=== PATIENT | female | born 1960 | race Caucasian/White ===

== ENCOUNTER 2016-04-02 19:17 | Emergency (ER) | payer SELFPAY ==
[~2016-04-02] VITALS: Ht 154.9 cm; Wt 57.0 kg
[~2016-04-02 19:17] MED LIST: ABCC1C PO; ACET1TAB40 PO; AUG875 PO; BUTA1CAP39 PO; FIORICET PO; HYDR-3498 PO; HYDR-3720 PO; IBUP800T25 PO; NAPR-260 PO; ONDA4TAB14 PO; ONDA4TAB8 PO; PROC10TA10 PO; SUMA50TA11 PO; ZOF8 PO
[2016-04-02 19:34] VITALS: Ht 154.9 cm; Wt 57.0 kg
[2016-04-03] MEDS ORDERED: ONDANSETRON (ODT) 4 MG TAB ODT STA (00:58)
[2016-04-03] MEDS ORDERED: KETOROLAC 30 MG INJ IM STA (00:58)
--- NOTE | 2016-04-03 01:12 | ERD ---
ER Documentation Chief Complaint Date/Time DATE: 04/03/16 TIME: 01:01 Chief Complaint migraine x 2 days lat medicated with excedrin 4 hrs ago HPI The patient is a 55-year-old female here with her usual migraine. It started yesterday and she took Excedrin Migraine without much relief. She denies sudden or thunderclap onset. She denies any change from her usual symptoms. She has photophobia, sensitivity to smells, nausea, and her usual level and location of headache pain. She denies any visual changes, blurred vision, double vision, head injury, recent illness, chest pain, difficulty breathing, or any other symptoms or concerns at this time. She states that she is currently waiting for her [employer] to sign her up with [place] so that she can follow up with a neurologist since she reports getting approximately 2-3 migraines per month. ROS All systems reviewed and are negative except as per history of present illness. Medications Home Meds Active Scripts Ondansetron Hcl* (Zofran*) 4 Mg Tablet, 4 MG PO Q6H for NAUSEA AND/OR VOMITING, #9 TAB Prov:BENNY MAHMOOD, SHUTTLE VAN DRIVER 04/03/16 Acetamin/Butalbital/Caffeine* (Fioricet*) [id number] Tab, 1 TAB PO Q6H Y for PAIN, #15 TAB Prov:BENNY MAHMOOD, JOSE ROBERTO 04/03/16 Acetamin/Butalbital/Caffeine* (Fioricet*) [id number] Tab, 1 TAB PO Q6H Y for PAIN, #30 TAB Prov:RUBIA POLANCO PA-C 03/13/16 Ondansetron (Ondansetron Odt) 4 Mg Tab.rapdis, 4 MG PO Q6H Y for NAUSEA AND/OR VOMITING, #10 TAB Prov:NOA GBISON DO 12/17/15 Naproxen* (Naprosyn*) 500 Mg Tablet, 500 MG PO BID Y for PAIN AND/OR INFLAMMATION, #10 TAB Prov:NOA GIBSON DO 12/17/15 Acetamin/Butalbital/Caffeine* (Fioricet*) 1 Tab Tab, 1 TAB PO Q4H Y for PAIN LEVEL 1-5, #15 TAB Prov:RUBIA POLANCO PA-C 11/27/15 Sumatriptan Succinate* (Imitrex*) 50 Mg Tablet, 50 MG PO BID Y for MIGRAINE HEADACHE, #30 TAB May repeat after 2 hours if needed; MAX 200 mg/24 hours Prov:RUBIA POLANCO PA-C 11/27/15 Hydrocodone Bit-Acetaminophen* ([place]*) 5-325 Mg Tab, 1 TAB PO Q6 Y for PAIN, # 16 TAB Prov:AMANDEEP RIVERA MD 10/19/15 Ondansetron Hcl* (Zofran* ODT) 8 mg -ODT Tab.disper, 8 MG PO Q6 Y for NAUSEA AND /OR VOMITING, #10 TAB Prov:AMANDEEP RIVERA MD 10/19/15 Hydrocodone Bit-Acetaminophen* ([place]*) 5-325 Mg Tab, 1 TAB PO Q6 Y for PAIN, # 16 TAB Prov:AMANDEEP RIVERA MD 05/30/15 Prochlorperazine* (Prochlorperazine*) 10 Mg Tablet, 10 MG PO Q6 Y for NAUSEA AND /OR VOMITING, #10 TAB Prov:ELSY ARREAGASTOLOS ANegro DO 04/24/15 Ibuprofen* (Motrin*) 800 Mg Tab, 800 MG PO Q6H Y for PAIN AND OR ELEVATED TEMP, #30 TAB Prov:LEYIFANOSAPOSTOLOS A. DO 04/24/15 Hydrocodone Bit-Acetaminophen* ([place]*) 7.5-325 Tablet, 2 TAB PO Q4H Y for PAIN , #30 TAB Prov:LEYIFANOSAPOSTOLOS A. DO 04/24/15 Acetamin/Butalbital/Caffeine* (Fioricet*) 1 Tab Tab, 1 TAB PO Q4H Y for PAIN LEVEL 1-5, #30 TAB Prov:RUBIA POLANCO PA-C 02/12/15 Ondansetron Hcl* (Zofran*) 4 Mg Tablet, 4 MG PO Q8, #20 TAB Prov:TREMAINE GARNICA 01/18/15 Snaqshavfzscf-Sawytenexx-Ennuaxxb-Codeine* (Fioricet w/ Codeine*) [id number]- 30MG Capsule, 1 CAP PO Q6H Y for PAIN LEVEL 1-5, #20 CAP Prov:TREMAINE GARNICA 01/18/15 Ondansetron Hcl* (Zofran* ODT) 8 mg -ODT Tab.disper, 8 MG PO Q6H Y for NAUSEA AND OR VOMITING, #20 TAB Prov:JANKI ANDRADE PA-C 12/26/14 Rqnmbwnlrsqhx-Esmrbirsvj-Sssjsxnn-Codeine* (Fioricet w/Codeine*) [id number] -30MG Cap, 1 CAP PO Q4H Y for PAIN LEVEL 1-5, #20 CAP Prov:JANKI ANDRADE PA-C 12/26/14 Amoxicillin-Clavulanate K* (Augmentin*) 875 Mg Tab, 875 MG PO BID for 7 Days, TAB Prov:REVA MA M. 11/01/14 Acetaminophen-Codeine* (Acetaminophen-Cod #3*) 300-30 Mg Tab, 1 TAB PO Q6 Y for PAIN, #10 TAB Prov:REVA MA M. 11/01/14 Awlfmvqwspcmh-Lsnkjxptqj-Qhnbfzgm-Codeine* (Fioricet w/ Codeine*) [id number]- 30MG Capsule, 1 CAP PO Q6H Y for PAIN LEVEL 1-5, #8 CAP Prov:JANKI ANDRADE PA-C 09/22/14 Ondansetron Hcl* (Zofran* ODT) 8 mg -ODT Tab.disper, 8 MG PO Q6 Y for NAUSEA AND /OR VOMITING, #20 TAB Prov:JANKI ANDRADE PA-C 09/22/14 Allergies Allergies: Coded Allergies: No Known Allergy (Unverified , 01/18/15) PMhx/Soc History of Surgery: No Anesthesia Reaction: No Hx Neurological Disorder: No Hx Respiratory Disorders: No Hx Cardiac Disorders: No Hx Psychiatric Problems: No Hx Miscellaneous Medical Probl: Yes (Severe Migraine) Hx Alcohol Use: No Hx Substance Use: No Hx Tobacco Use: No Smoking Status: Never smoker Physical Exam Vitals Vital Signs Date Time Temp Pulse Resp B/P Pulse Ox O2 Delivery O2 Flow Rate FiO2 04/02/16 19:34 98.1 68 17 128/58 98 Physical Exam INITIAL VITAL SIGNS: Reviewed by me GENERAL: Alert. Well developed and well nourished. No respiratory distress HEAD: Head is normocephalic. Atraumatic. EYES: EOMI. PERRL. No scleral icterus. No conjunctival injection. ENT: External ears, nose, and mouth normal. Nasal passages patent. Moist mucous membranes. NECK: Supple. Full range of motion. Trachea midline. RESPIRATORY: No tachypnea. Clear to auscultation bilaterally. No wheezing, rales , or rhonchi. CV: Regular rate and rhythm. No murmurs, rubs, or gallops ABDOMEN: Soft, non-distended, non-tender. No guarding. No rebound. No masses. Bowel sounds normal in all quadrants. BACK: No CVA tenderness. Full ROM. EXTREMITIES: No obvious deformity. No clubbing or cyanosis. No edema. SKIN: Warm and dry. No diaphoresis. No obvious rashes or lesions. NEUROLOGIC: Alert and oriented x 4. Appropriate. Face is symmetric. Speech is normal. Moves all extremities equally. No focal neurologic deficits. Negative Romberg. Cranial nerve II-XII grossly intact on exam. Results 24 hrs Current Medications Medications (Trade) Dose Ordered Sig/[place] Route PRN Reason Start Time Stop Time Status Last Admin Dose Admin Ondansetron HCl (Zofran Odt) 4 mg ONCE STAT ODT 04/03/16 00:58 04/03/16 01:01 DC 04/03/16 01:05 Ketorolac Tromethamine (Toradol) 30 mg ONCE STAT IM 04/03/16 00:58 04/03/16 01:01 DC 04/03/16 01:06 Procedures/MDM Nursing Notes Reviewed Previous Medical Records requested via [employer]. EMERGENCY DEPARTMENT COURSE / MEDICAL DECISION MAKING: The patient comes to the ED secondary to migraine headache 2 days with associated photophobia, sensitivity to smells, and nausea. Differential diagnosis upon initial evaluation includes but is not limited to: Brain bleed, brain lesion, meningitis, migraine, and others. The patient was treated with Toradol 30 mg IM, Zofran 4 mg p.o. The patient was offered 1 L normal saline, IV Benadryl, IV Reglan, and IV Toradol, however she declined stating that her family is here waiting for her and she does not want them to have to wait much longer. I also offered her a head CT, but she stated that this migraine is no different from her usual migraines and she declined the head CT. She denied head trauma or thunderclap onset. Her physical exam was benign, and her vital signs were normal (98.1, HR 68, 128/58, RR 17, and 98% on room air). On reassessment, she denied any headache pain or nausea. Her repeat physical exam was benign. Given this, I have low suspicion at this time for brain bleed, brain lesion, meningitis, or any other serious cause of headache. Final impression: Migraine Based on patient's history of present illness and physical examination the decision was made to discharge. The patient was re-evaluated after ED treatment and stabilizing measures, and symptoms have resolved. There is no evidence of life threatening injuries or illnesses at this time. On re-examination, patient resting in no distress, stable vital signs, reports feeling better and safe for discharge with outpatient follow up with PMD in 1-2 days. Patient given return precautions. The patient verbalized understanding and agreed to return precautions. I counseled her at length regarding the importance of follow-up with a neurologist since she has several migraines per month. She verbalized understanding and agreed to follow up with a neurologist. She requested a prescription for fioricet, as she stated that it works well for her. On chart review, she was given fioricet last month (#30). Patient counseled on the risks of taking this medication penitentiary including addiction, medication abuse, liver damage, kidney damage, etc. I again reiterated that close follow up with a neurologist for migraine prophylaxis is imperative. She verbalized understanding and agreed. I will give fioricet on a short-term basis (#15). Prescription Zofran Fioricet Departure Diagnosis: Primary Impression: Migraine headache Migraine type: without aura Status migrainosus presence: without status migrainosus Intractability: not intractable Qualified Code: G43.009 - Migraine without aura and without status migrainosus, not intractable Condition: BENNY Bhatti NP Apr 03, 2016 01:12
[2016-04-03] MEDS ORDERED: FIORICET PO (01:14)
[2016-04-03] MEDS ORDERED: ONDA4TAB8 PO (01:14)
== END 2016-04-03 01:20 | disposition home or self-care (01) ==
LOC: FTE 19:17
DX: G43.009 Migraine without aura, not intractable, without status migrainosus (principal); R11.0 Nausea
CPT/HCPCS: 96372; 99284; J1885

== ENCOUNTER 2016-06-06 19:22 | Emergency (ER) | payer SELFPAY ==
[~2016-06-06] VITALS: Ht 154.9 cm; Wt 55.9 kg
[2016-06-06 20:44] VITALS: Ht 154.9 cm; Wt 55.9 kg
[2016-06-06] MEDS ORDERED: FIORICET PO ×2 (22:41→22:45)
--- NOTE | 2016-06-07 06:11 | ERD ---
ER Documentation Chief Complaint Date/Time DATE: 06/07/16 TIME: 05:59 Chief Complaint MIGRAINE SINCE THIS AM. OTC MEDS INEFFECTIVE. +N/V HPI Patient is a 55 yr old female complaining of a headache since this morning on the left frontal area. Patient has a history of migraine and has experienced the same symptoms before. Pt states that she ran out of antimigraine medications and has since been taking OTC meds without any benefit. Pt took advil 2 hours prior to examination. Pt also complains of nausea. Denies shortness of breath, paresthesia, paresis, drooling, slurred speech, nuchal rigidity, fever or dizziness. ROS All systems reviewed and are negative except as per history of present illness. Medications Home Meds Active Scripts Acetamin/Butalbital/Caffeine* (Fioricet*) [id number] Tab, 1 TAB PO Q6H Y for PAIN, #15 TAB Prov:BROOKE REED 06/06/16 Ondansetron Hcl* (Zofran*) 4 Mg Tablet, 4 MG PO Q6H for NAUSEA AND/OR VOMITING, #9 TAB Prov:BENNY MAHMOOD, TETRYL BLENDER OPERATOR 04/03/16 Acetamin/Butalbital/Caffeine* (Fioricet*) [id number] Tab, 1 TAB PO Q6H Y for PAIN, #15 TAB Prov:BENNY MAHMOOD, TETRYL BLENDER OPERATOR 04/03/16 Acetamin/Butalbital/Caffeine* (Fioricet*) [id number] Tab, 1 TAB PO Q6H Y for PAIN, #30 TAB Prov:RUBIA POLANCO PA-C 03/13/16 Ondansetron (Ondansetron Odt) 4 Mg Tab.rapdis, 4 MG PO Q6H Y for NAUSEA AND/OR VOMITING, #10 TAB Prov:NOA GIBSON DO 12/17/15 Naproxen* (Naprosyn*) 500 Mg Tablet, 500 MG PO BID Y for PAIN AND/OR INFLAMMATION, #10 TAB Prov:NOA GIBSON DO 12/17/15 Acetamin/Butalbital/Caffeine* (Fioricet*) 1 Tab Tab, 1 TAB PO Q4H Y for PAIN LEVEL 1-5, #15 TAB Prov:RUBIA POLANCO PA-C 11/27/15 Sumatriptan Succinate* (Imitrex*) 50 Mg Tablet, 50 MG PO BID Y for MIGRAINE HEADACHE, #30 TAB May repeat after 2 hours if needed; MAX 200 mg/24 hours Prov:RUBIA POLANCO PA-C 11/27/15 Hydrocodone Bit-Acetaminophen* ([place]*) 5-325 Mg Tab, 1 TAB PO Q6 Y for PAIN, # 16 TAB Prov:AMANDEEP RIVERA MD 10/19/15 Ondansetron Hcl* (Zofran* ODT) 8 mg -ODT Tab.disper, 8 MG PO Q6 Y for NAUSEA AND /OR VOMITING, #10 TAB Prov:AMANDEEP RIVERA MD 10/19/15 Hydrocodone Bit-Acetaminophen* ([place]*) 5-325 Mg Tab, 1 TAB PO Q6 Y for PAIN, # 16 TAB Prov:AMANDEEP RIVERA MD 05/30/15 Prochlorperazine* (Prochlorperazine*) 10 Mg Tablet, 10 MG PO Q6 Y for NAUSEA AND /OR VOMITING, #10 TAB Prov:ELSY ARREAGASTOLOS ANegro DO 04/24/15 Ibuprofen* (Motrin*) 800 Mg Tab, 800 MG PO Q6H Y for PAIN AND OR ELEVATED TEMP, #30 TAB Prov:LEKKOSAPOSTOLOS A. DO 04/24/15 Hydrocodone Bit-Acetaminophen* ([place]*) 7.5-325 Tablet, 2 TAB PO Q4H Y for PAIN , #30 TAB Prov:LEKKOSAPOSTOLOS A. DO 04/24/15 Acetamin/Butalbital/Caffeine* (Fioricet*) 1 Tab Tab, 1 TAB PO Q4H Y for PAIN LEVEL 1-5, #30 TAB Prov:RUBIA POLANCO PA-C 02/12/15 Ondansetron Hcl* (Zofran*) 4 Mg Tablet, 4 MG PO Q8, #20 TAB Prov:TREMAINE GARNICA 01/18/15 Uhnerqktdkzmn-Zcvhijaxvm-Aqvbrglp-Codeine* (Fioricet w/ Codeine*) [id number]- 30MG Capsule, 1 CAP PO Q6H Y for PAIN LEVEL 1-5, #20 CAP Prov:TREMAINE GARNICA 01/18/15 Ondansetron Hcl* (Zofran* ODT) 8 mg -ODT Tab.disper, 8 MG PO Q6H Y for NAUSEA AND OR VOMITING, #20 TAB Prov:JANKI ANDRADE PA-C 12/26/14 Ykluzhydxoxsp-Isaaqmydvv-Uerwfzeu-Codeine* (Fioricet w/Codeine*) [id number] -30MG Cap, 1 CAP PO Q4H Y for PAIN LEVEL 1-5, #20 CAP Prov:JANKI ANDRADE PA-C 12/26/14 Amoxicillin-Clavulanate K* (Augmentin*) 875 Mg Tab, 875 MG PO BID for 7 Days, TAB Prov:REVA MA M. 11/01/14 Acetaminophen-Codeine* (Acetaminophen-Cod #3*) 300-30 Mg Tab, 1 TAB PO Q6 Y for PAIN, #10 TAB Prov:REVA MA M. 11/01/14 Wtybamqfinfrq-Ffwnifkrbb-Mycfstkv-Codeine* (Fioricet w/ Codeine*) [id number]- 30MG Capsule, 1 CAP PO Q6H Y for PAIN LEVEL 1-5, #8 CAP Prov:JANKI ANDRADE PA-C 09/22/14 Ondansetron Hcl* (Zofran* ODT) 8 mg -ODT Tab.disper, 8 MG PO Q6 Y for NAUSEA AND /OR VOMITING, #20 TAB Prov:JANKI ANDRADE PA-C 09/22/14 Allergies Allergies: Coded Allergies: No Known Allergy (Unverified , 01/18/15) PMhx/Soc Medical and Surgical Hx: pt denies Surgical Hx History of Surgery: No Anesthesia Reaction: No Hx Neurological Disorder: No Hx Respiratory Disorders: No Hx Cardiac Disorders: No Hx Psychiatric Problems: No Hx Miscellaneous Medical Probl: Yes (Severe Migraine) Hx Alcohol Use: No Hx Substance Use: No Hx Tobacco Use: No Smoking Status: Never smoker Physical Exam Vitals Vital Signs Date Time Temp Pulse Resp B/P Pulse Ox O2 Delivery O2 Flow Rate FiO2 06/06/16 20:44 97.8 87 18 125/58 99 Physical Exam Physical Exam CONST: Well-developed, well-nourished, in no acute distress. Nontoxic in appearance. HEENT: Atraumatic. Normal conjunctiva. EOM intact. TM intact. External ear is normal. Clear oropharnyx without erythema. No uvular deviation. Moist mucous membranes. Supple neck. No meningismus. No submandibular induration. RESP: Clear to auscultation bilaterally. No wheezing. CARDIO: Regular rate and rhythm, no murmurs. ABD: Soft, non tender, non distended. Normal bowel sounds. No McBurney's point tenderness. No guarding or rigidity. No peritoneal signs. SKIN: No petechiae or rashes. BACK: No midline or flank tenderness. EXT: No cyanosis or edema. Distal pulses equal and bilateral. NEURO: Awake and alert, appropriate for age. Procedures/MDM EMERGENCY DEPARTMENT COURSE/MEDICAL DECISION MAKING This is a 55 who comes to the emergency room secondary to complaints of migraine headache. Pt admits of running out of antiemetic medications and has been taking OTC pain meds without benefit. pt is on [employer] database and last narcotic prescription was for tramadol #15 tablets on 04/27/16. pulmonary and cardiac examination is unremarkable and I believe a radiographic study is not warranted. My primary diagnosis is migraine headache. Differential diagnoses considered but not limited to migraine, temporal arteritis, intracerebral hemorrhage, meningitis, head injury or brain neoplasm. . Pt is hemodynamically stable upon reassessment. The patient was discharged for outpatient management with a prescription for [] . The patient was advised to followup with their PMD in 1-2 days and to return to the Emergency Department if there are any new or worsening symptoms. The patient understood and agreed with the diagnosis, treatment and plan. Patient is stable for discharge at this time. Departure Diagnosis: Primary Impression: Migraine headache Migraine type: without aura Status migrainosus presence: without status migrainosus Intractability: intractable Qualified Code: G43.019 - Intractable migraine without aura and without status migrainosus Condition: Stable Patient Instructions: Headache, Migraine (Classical) [facility] Usted se cox hecho un examen mdico de control que le indica que no est en nickie condicin que requiera tratamiento urgente en el Departamento de Emergencia. Un estudio ms profundo y el tratamiento de kamara condicin pueden esperar sin ningn riesgo hasta que usted sea atendida/o en el consultorio de kamara mdico o nickie cl flaco. Es responsabilidad suya arreglar nickie tamara para el seguimiento del maldonado. MANEJO DE CONDICIONES NO URGENTES EN EL FUTURO 1) Si usted tiene un mdico de atencin primaria: Usted debera llamar a kamara mdico de atencin primaria antes de venir al departamento de emergencia. Despus de las horas de consultorio, kamara doctor o kamara asociado/a est disponible por telfono. El mdico o enfermero de balwinder en el servicio telefnico puede asesorarle por tres medio para atender el problema, o maldonado contrario se puede programar nickie tamara. 2) Si usted no tiene un mdico de atencin primaria: Llame al mdico o clnica de referencia que aparece abajo nidia las horas de consultorio para hacer nickie tamara para que le vean. CLINICAS: [facility] [phone] [facility] [phone] [address] [facility] [phone] [facility] [phone] [facility]. [place] [id number] [phone] [facility]. [phone] [facility] () Usted se cox hecho un examen mdico de control que le indica que no est en nickie condicin que requiera tratamiento urgente en el Departamento de Emergencia. Un estudio ms profundo y el tratamiento de kamara condicin pueden esperar sin ningn riesgo hasta que usted sea atendida/o en el consultorio de kamara mdico o nickie cl flaco. Es responsabilidad suya arreglar nicike tamara para el seguimiento del maldonado. MANEJO DE CONDICIONES NO URGENTES EN EL FUTURO 1) Si usted tiene un mdico de atencin primaria: Usted debera llamar a kamara mdico de atencin primaria antes de venir al departamento de emergencia. Despus de las horas de consultorio, kamara doctor o kamara asociado/a est disponible por telfono. El mdico o enfermero de balwinder en el servicio telefnico puede asesorarle por tres medio para atender el problema, o maldonado contrario se puede programar nickie tamara. 2) Si usted no tiene un mdico de atencin primaria: Llame al mdico o condado institucions de referencia que aparece abajo nidia las horas de consultorio para hacer nickie tamara para que le vean. SI USTED NO PUEDE PAGAR PARA PRIYANKA UN MEDICO puede ir a: [facility] [address] [place] [address] [facility] [address] [place] [address] [facility] [address] [place] [address] [address] [facility] [address] [place] [address] Additional Instructions: Cheque otro vez con kamara doctor primario en el proximo tavares or regresa para mas o nueva simptomas BROOKE REED Jun 07, 2016 06:10
== END 2016-06-06 23:01 | disposition home or self-care (01) ==
LOC: FTE 19:22
DX: G43.019 Migraine without aura, intractable, without status migrainosus (principal)
CPT/HCPCS: 99283

== ENCOUNTER 2016-09-02 10:27 | Emergency (ER) | payer MEDICAID ==
[~2016-09-02] VITALS: Ht 154.9 cm; Wt 57.0 kg
[2016-09-02 10:29] VITALS: Ht 154.9 cm; Wt 57.0 kg
[2016-09-02] MEDS ORDERED: ONDANSETRON (ODT) 4 MG TAB ODT STA (10:42)
[2016-09-02] MEDS ORDERED: KETOROLAC 30 MG INJ IM STA (10:42)
[2016-09-02] MEDS ORDERED: ONDA4TAB14 PO (10:43)
[2016-09-02] MEDS ORDERED: FIORICET PO (10:43)
--- NOTE | 2016-09-02 11:04 | ERD ---
ER Documentation Chief Complaint Date/Time DATE: 09/02/16 TIME: 11:02 Chief Complaint Complains of a headache since this am HPI 55-year-old female history of migraine headache comes emergency room with recurring headache that started this morning. She states it is diffuse, pressure-like, throbbing. She states the last time she had this headache was up to 6 months ago. She frequents emergency department usually takes either tramadol or Fioricet. She denies any fevers or chills, neck stiffness, vomiting or diarrhea. No headache. Patient's denies that this is the worst headache of her life. ROS All systems reviewed and are negative except as per history of present illness. Medications Home Meds Active Scripts Ondansetron (Ondansetron Odt) 4 Mg Tab.rapdis, 4 MG PO Q6H Y for NAUSEA AND/OR VOMITING, #20 TAB Prov:JANKI ANDRADE PA-C 09/02/16 Acetamin/Butalbital/Caffeine* (Fioricet*) [id number] Tab, 1 TAB PO Q6H Y for PAIN, #30 TAB Prov:JANKI ANDRADE PA-C 09/02/16 Acetamin/Butalbital/Caffeine* (Fioricet*) [id number] Tab, 1 TAB PO Q6H Y for PAIN, #15 TAB Prov:BROOKE REED 06/06/16 Ondansetron Hcl* (Zofran*) 4 Mg Tablet, 4 MG PO Q6H for NAUSEA AND/OR VOMITING, #9 TAB Prov:BENNY MAHMOOD, JOSE ROBERTO 04/03/16 Acetamin/Butalbital/Caffeine* (Fioricet*) [id number] Tab, 1 TAB PO Q6H Y for PAIN, #15 TAB Prov:BENNY MAHMOOD, TANNING DRUM OPERATOR 04/03/16 Acetamin/Butalbital/Caffeine* (Fioricet*) [id number] Tab, 1 TAB PO Q6H Y for PAIN, #30 TAB Prov:RUBIA POLANCO PA-C 03/13/16 Ondansetron (Ondansetron Odt) 4 Mg Tab.rapdis, 4 MG PO Q6H Y for NAUSEA AND/OR VOMITING, #10 TAB Prov:NOA GIBSON DO 12/17/15 Naproxen* (Naprosyn*) 500 Mg Tablet, 500 MG PO BID Y for PAIN AND/OR INFLAMMATION, #10 TAB Prov:NOA GIBSON DO 12/17/15 Acetamin/Butalbital/Caffeine* (Fioricet*) 1 Tab Tab, 1 TAB PO Q4H Y for PAIN LEVEL 1-5, #15 TAB Prov:RUBIA POLANCO PA-C 11/27/15 Sumatriptan Succinate* (Imitrex*) 50 Mg Tablet, 50 MG PO BID Y for MIGRAINE HEADACHE, #30 TAB May repeat after 2 hours if needed; MAX 200 mg/24 hours Prov:RUBIA POLANCO PA-C 11/27/15 Hydrocodone Bit-Acetaminophen* (Fulton*) 5-325 Mg Tab, 1 TAB PO Q6 Y for PAIN, # 16 TAB Prov:AMANDEEP RIVERA MD 10/19/15 Ondansetron Hcl* (Zofran* ODT) 8 mg -ODT Tab.disper, 8 MG PO Q6 Y for NAUSEA AND /OR VOMITING, #10 TAB Prov:AMANDEEP RIVERA MD 10/19/15 Hydrocodone Bit-Acetaminophen* (Fulton*) 5-325 Mg Tab, 1 TAB PO Q6 Y for PAIN, # 16 TAB Prov:AMANDEEP RIVERA MD 05/30/15 Prochlorperazine* (Prochlorperazine*) 10 Mg Tablet, 10 MG PO Q6 Y for NAUSEA AND /OR VOMITING, #10 TAB Prov:KALANI ARREAGA DO 04/24/15 Ibuprofen* (Motrin*) 800 Mg Tab, 800 MG PO Q6H Y for PAIN AND OR ELEVATED TEMP, #30 TAB Prov:ELSY ARREAGASTOLOS ANegro DO 04/24/15 Hydrocodone Bit-Acetaminophen* (Fulton*) 7.5-325 Tablet, 2 TAB PO Q4H Y for PAIN , #30 TAB Prov:ELSY ARREAGASTOLOS ANegro DO 04/24/15 Acetamin/Butalbital/Caffeine* (Fioricet*) 1 Tab Tab, 1 TAB PO Q4H Y for PAIN LEVEL 1-5, #30 TAB Prov:RUBIA POLANCO PA-C 02/12/15 Ondansetron Hcl* (Zofran*) 4 Mg Tablet, 4 MG PO Q8, #20 TAB Prov:TREMAINE GARNICA 01/18/15 Pdsdpfxxjdptn-Kgvacuzwip-Vntqceio-Codeine* (Fioricet w/ Codeine*) [id number] 30MG Capsule, 1 CAP PO Q6H Y for PAIN LEVEL 1-5, #20 CAP Prov:TREMAINE GARNICA 01/18/15 Ondansetron Hcl* (Zofran* ODT) 8 mg -ODT Tab.disper, 8 MG PO Q6H Y for NAUSEA AND OR VOMITING, #20 TAB Prov:JANKI ANDRADE PA-C 12/26/14 Titdkffmrokxg-Zzeabxqrqe-Yvnbpxnc-Codeine* (Fioricet w/Codeine*) [id number] -30MG Cap, 1 CAP PO Q4H Y for PAIN LEVEL 1-5, #20 CAP Prov:JANKI ANDRADE PA-C 12/26/14 Amoxicillin-Clavulanate K* (Augmentin*) 875 Mg Tab, 875 MG PO BID for 7 Days, TAB Prov:REVA MA. 11/01/14 Acetaminophen-Codeine* (Acetaminophen-Cod #3*) 300-30 Mg Tab, 1 TAB PO Q6 Y for PAIN, #10 TAB Prov:REVA MA. 11/01/14 Gjmystttcwfmw-Klgsnrwali-Sntephal-Codeine* (Fioricet w/ Codeine*) [id number]- 30MG Capsule, 1 CAP PO Q6H Y for PAIN LEVEL 1-5, #8 CAP Prov:JANKI ANDRADE PA-C 09/22/14 Ondansetron Hcl* (Zofran* ODT) 8 mg -ODT Tab.disper, 8 MG PO Q6 Y for NAUSEA AND /OR VOMITING, #20 TAB Prov:JANKI ANDRADE PA-C 09/22/14 Allergies Allergies: Coded Allergies: No Known Allergy (Unverified , 01/18/15) PMhx/Soc History of Surgery: No Anesthesia Reaction: No Hx Neurological Disorder: No Hx Respiratory Disorders: No Hx Cardiac Disorders: No Hx Psychiatric Problems: No Hx Miscellaneous Medical Probl: Yes (Severe Migraine) Hx Alcohol Use: No Hx Substance Use: No Hx Tobacco Use: No Physical Exam Vitals Vital Signs Date Time Temp Pulse Resp B/P Pulse Ox O2 Delivery O2 Flow Rate FiO2 09/02/16 10:29 98.0 92 20 139/67 98 Physical Exam General: Well-developed, well-nourished. The patient appears in no acute distress. HEENT: Head is normocephalic, atraumatic. No scleral icterus. No tenderness to bilateral temples. Neck: Supple. Nontender. Lungs: Clear to auscultation. Normal air movement. Heart: Regular rate and rhythm. S1 and S2 are normal. No murmurs, gallops, or rubs. Abdomen: Nondistended. Extremities: No clubbing or cyanosis. Moving extremities x 4. No weakness. Neurologic: Alert and oriented 3. No focal deficits. Normal speech and gait. Cranial nerves II through XII grossly intact. Strength to upper and lower extremity 5 out of 5 bilaterally. Skin: Normal turgor. No rash or lesions. Results 24 hrs Current Medications Medications (Trade) Dose Ordered Sig/Chelsea Route PRN Reason Start Time Stop Time Status Last Admin Dose Admin Ondansetron HCl (Zofran Odt) 4 mg ONCE STAT ODT 09/02/16 10:42 09/02/16 10:43 DC 09/02/16 10:46 Ketorolac Tromethamine (Toradol) 30 mg ONCE STAT IM 09/02/16 10:42 09/02/16 10:43 DC 09/02/16 10:46 Procedures/MDM ED course: Patient was given Toradol 30 mg IM, Zofran 4 mg ODT was administered. MDM: 60-year-old female comes in with recurring headache, likely migraine headache. Other differentials and considered include subarachnoid hemorrhage, temporal arteritis, intracranial hemorrhage, mass-effect, TIA, stroke, meningitis, encephalitis, however unlikely. She states that she has had this headache multiple times in the past, and responded to Toradol and Zofran well. She will be given a short course of Fioricet, Zofran. I have advised her to follow-up with her primary care doctor, and she likely needs outpatient management with neurology. Patient's blood pressure was elevated (>120/80) but appears stable without evidence of hypertension emergency or urgency. The patient was counseled about the risks of hypertension and urged to pursue outpatient monitoring and therapy within a week with their primary care physician. Departure Diagnosis: Primary Impression: Headache Condition: Good Patient Instructions: Self-Care for Headaches Referrals: NARCISO CAO MD Additional Instructions: SPECIALIST: YOU HAVE A MEDICAL CONDITION WHICH REQUIRES YOU TO SEE A SPECIALIST WITHIN THE NEXT 1-2 DAYS. PLEASE FOLLOW UP WITH YOUR PRIMARY PHYSICIAN FOR REFFERAL.IF YOU DO NOT HAVE A PRIMARY CARE PHYSICIAN AND/OR YOU CAN NOT AFFORD TO SEE A PHYSICIAN THE FOLLOWING RESOURCES HAVE BEEN SUPPLIED TO YOU. IT IS YOUR RESPONSIBILITY TO BE SEEN BY THE SPECIALIST JANKI ANDRADE PA-C Sep 02, 2016 11:04
[2016-09-02 11:11] VITALS: BP 128/65; PULSE 75; RESP 19; TEMP 98.4
== END 2016-09-02 11:18 | disposition home or self-care (01) ==
LOC: FTE 10:27
DX: R51 Headache (principal)
CPT/HCPCS: 96372; J1885; Z7502; Z7610

== ENCOUNTER 2016-12-09 14:53 | Emergency (ER) | payer SELFPAY ==
[~2016-12-09] VITALS: Ht 160 cm; Wt 59.5 kg
[2016-12-09 14:57] VITALS: Ht 160 cm; Wt 59.5 kg
[2016-12-09] MEDS ORDERED: ONDANSETRON (ODT) 4 MG TAB ODT STA (15:30)
[2016-12-09] MEDS ORDERED: FIORICET PO (15:44)
--- NOTE | 2016-12-09 17:26 | ERD ---
ER Documentation Chief Complaint Date/Time DATE: 12/09/16 TIME: 17:20 Chief Complaint headache since this morning hx migraines HPI 55-year-old female patient with a past medical history of migraines presents to the ED stating that her episode of headache started this morning associated with 2 episodes of nonbilious nonbloody vomiting. States that she is here for a refill for Fioricet. States that her headache is mainly in the temporal region and on the top of her head. Describes the pain as sharp and rates it a 10 out of 10. This feels exactly like her history of migraines. Denies any head or neck injuries. Denies any loss of consciousness or seizures. Denies any weakness, numbness or tingling, dizziness, blurred vision, vision loss, pain , shortness of breath, neck pain. Denies any photophobia or phonophobia. ROS All systems reviewed and are negative except as per history of present illness. Medications Home Meds Active Scripts Acetamin/Butalbital/Caffeine* (Fioricet*) [id number] Tab, 1 TAB PO Q6H Y for PAIN, #30 TAB Prov:KATLIN GARCIA PA-C 12/09/16 Ondansetron (Ondansetron Odt) 4 Mg Tab.rapdis, 4 MG PO Q6H Y for NAUSEA AND/OR VOMITING, #20 TAB Prov:JANKI ANDRADE PA-C 09/02/16 Acetamin/Butalbital/Caffeine* (Fioricet*) [id number] Tab, 1 TAB PO Q6H Y for PAIN, #30 TAB Prov:JANKI ANDRADE PA-C 09/02/16 Acetamin/Butalbital/Caffeine* (Fioricet*) [id number] Tab, 1 TAB PO Q6H Y for PAIN, #15 TAB Prov:BROOKE REED 06/06/16 Ondansetron Hcl* (Zofran*) 4 Mg Tablet, 4 MG PO Q6H for NAUSEA AND/OR VOMITING, #9 TAB Prov:BENNY MAHMOOD, JOSE ROBERTO 04/03/16 Acetamin/Butalbital/Caffeine* (Fioricet*) [id number] Tab, 1 TAB PO Q6H Y for PAIN, #15 TAB Prov:BENNY MAHMOOD, CONSTRUCTION JOB COST ESTIMATOR 04/03/16 Acetamin/Butalbital/Caffeine* (Fioricet*) [id number] Tab, 1 TAB PO Q6H Y for PAIN, #30 TAB Prov:RUBIA POLANCO PA-C 03/13/16 Ondansetron (Ondansetron Odt) 4 Mg Tab.rapdis, 4 MG PO Q6H Y for NAUSEA AND/OR VOMITING, #10 TAB Prov:NOA GIBSON DO 12/17/15 Naproxen* (Naprosyn*) 500 Mg Tablet, 500 MG PO BID Y for PAIN AND/OR INFLAMMATION, #10 TAB Prov:NOA GIBSON DO 12/17/15 Acetamin/Butalbital/Caffeine* (Fioricet*) 1 Tab Tab, 1 TAB PO Q4H Y for PAIN LEVEL 1-5, #15 TAB Prov:RUBIA POLANCO PA-C 11/27/15 Sumatriptan Succinate* (Imitrex*) 50 Mg Tablet, 50 MG PO BID Y for MIGRAINE HEADACHE, #30 TAB May repeat after 2 hours if needed; MAX 200 mg/24 hours Prov:RUBIA POLANCO PA-C 11/27/15 Hydrocodone Bit-Acetaminophen* (Varnell*) 5-325 Mg Tab, 1 TAB PO Q6 Y for PAIN, # 16 TAB Prov:AMANDEEP RIVERA MD 10/19/15 Ondansetron Hcl* (Zofran* ODT) 8 mg -ODT Tab.disper, 8 MG PO Q6 Y for NAUSEA AND /OR VOMITING, #10 TAB Prov:AMANDEEP RIVERA MD 10/19/15 Hydrocodone Bit-Acetaminophen* (Varnell*) 5-325 Mg Tab, 1 TAB PO Q6 Y for PAIN, # 16 TAB Prov:AMANDEEP RIVERA MD 05/30/15 Prochlorperazine* (Prochlorperazine*) 10 Mg Tablet, 10 MG PO Q6 Y for NAUSEA AND /OR VOMITING, #10 TAB Prov:KALANI ARREAGA DO 04/24/15 Ibuprofen* (Motrin*) 800 Mg Tab, 800 MG PO Q6H Y for PAIN AND OR ELEVATED TEMP, #30 TAB Prov:KALANI ARREAGA A. DO 04/24/15 Hydrocodone Bit-Acetaminophen* (Varnell*) 7.5-325 Tablet, 2 TAB PO Q4H Y for PAIN , #30 TAB Prov:ALEXIS ARREAGAS A. DO 04/24/15 Acetamin/Butalbital/Caffeine* (Fioricet*) 1 Tab Tab, 1 TAB PO Q4H Y for PAIN LEVEL 1-5, #30 TAB Prov:RUBIA POLANCO PA-C 02/12/15 Ondansetron Hcl* (Zofran*) 4 Mg Tablet, 4 MG PO Q8, #20 TAB Prov:TREMAINE GARNICA 01/18/15 Vkfwukrquvkga-Doesekavpo-Ejxgnmsw-Codeine* (Fioricet w/ Codeine*) [id number]- 30MG Capsule, 1 CAP PO Q6H Y for PAIN LEVEL 1-5, #20 CAP Prov:TREMAINE GARNICA 01/18/15 Ondansetron Hcl* (Zofran* ODT) 8 mg -ODT Tab.disper, 8 MG PO Q6H Y for NAUSEA AND OR VOMITING, #20 TAB Prov:JANKI ANDRADE PA-C 12/26/14 Pbevtfntyaoab-Ziulcpjapi-Vsjzbfer-Codeine* (Fioricet w/Codeine*) [id number] -30MG Cap, 1 CAP PO Q4H Y for PAIN LEVEL 1-5, #20 CAP Prov:JANKI ANDRADE PA-C 12/26/14 Amoxicillin-Clavulanate K* (Augmentin*) 875 Mg Tab, 875 MG PO BID for 7 Days, TAB Prov:REVA MA M. 11/01/14 Acetaminophen-Codeine* (Acetaminophen-Cod #3*) 300-30 Mg Tab, 1 TAB PO Q6 Y for PAIN, #10 TAB Prov:REVA MA M. 11/01/14 Fhkbualmksxcr-Udrvxaleei-Bfhqeppq-Codeine* (Fioricet w/ Codeine*) [id number]- 30MG Capsule, 1 CAP PO Q6H Y for PAIN LEVEL 1-5, #8 CAP Prov:JANKI ANDRADE PA-C 09/22/14 Ondansetron Hcl* (Zofran* ODT) 8 mg -ODT Tab.disper, 8 MG PO Q6 Y for NAUSEA AND /OR VOMITING, #20 TAB Prov:JANKI ANDRADE PA-C 09/22/14 Allergies Allergies: Coded Allergies: No Known Allergy (Unverified , 12/09/16) PMhx/Soc History of Surgery: No Anesthesia Reaction: No Hx Neurological Disorder: No Hx Respiratory Disorders: No Hx Cardiac Disorders: No Hx Psychiatric Problems: No Hx Miscellaneous Medical Probl: Yes (Severe Migraine) Hx Alcohol Use: No Hx Substance Use: No Hx Tobacco Use: Yes Smoking Status: Current every day smoker Physical Exam Vitals Vital Signs Date Time Temp Pulse Resp B/P Pulse Ox O2 Delivery O2 Flow Rate FiO2 12/09/16 14:57 98.4 90 20 122/55 98 Physical Exam Const: Vxh-iyv-rdjuxullc, well-nourished. In no acute distress. Head: Atraumatic, normocephalic Eyes: Normal Conjunctiva without injection. No purulent discharge. PERRLA. EOMI ENT: Normal external ear. Ear canal without erythema. Tympanic membrane pearly finn without effusion or bulging. Nasal canal clear with normal turbinates. Moist oropharynx without tonsillar exudates. Non-erythematous pharynx. Uvula midline. No drooling. No trismus. Neck: No cervical midline tenderness. Full range of motion. No meningismus. No cervical lymphadenopathy. No JVD. No bruits. Resp: Clear to auscultation bilaterally. No wheezing, rhonchi, rales, or crackles. No accessory muscle use. No retractions. Cardio: Regular rate and rhythm. No murmurs, rubs or gallops. Abd: Soft, non tender, non distended. Normal bowel sounds. No palpable masses. No rebound tenderness. No guarding. Negative McBurney's Point. Negative Jorge's Sign. Skin: Normal skin turgor. No petechiae or rashes Back: No midline tenderness. No CVA tenderness. Ext: No cyanosis, or edema. Distal pulses intact bilaterally. Neur: Awake and alert. Normal gait. Normal coordination. Cranial Nerves II- VII intact. Normal finger to nose. Muscle strength 5/5. Sensation intact. Psych: Normal Mood and Affect Results 24 hrs Current Medications Medications (Trade) Dose Ordered Sig/Chelsea Route PRN Reason Start Time Stop Time Status Last Admin Dose Admin Ondansetron HCl (Zofran Odt) 4 mg ONCE STAT ODT 12/09/16 15:30 12/09/16 15:31 DC 12/09/16 15:39 Procedures/MDM This is a 55-year-old female patient with a past medical history of migraines presents to the ED complaining of nausea, few episodes of nonbilious nonbloody vomiting and a headache that started this morning. Patient is afebrile and nontoxic-appearing. Patient has normal vital signs. Stated that she would like some nausea medication however denied wanting any pain medication. She was treated here in the ED with Zofran and had a successful p.o. challenge. No vomiting here in the ED. I will refill patient's prescription for Fioricet. Patient has a long-standing history of migraines and has been seen here 37 times for the migraines. No indication for a CT of the brain without contrast at this time. There is low suspicion for intracranial bleed, subarachnoid hemorrhage, meningitis, TIA, stroke, subdural hematoma, seizures, cerebral venous sinus thrombus, carotid dissection, hematoma, or other emergent conditions. Discharge medications: Fioricet Follow up with primary care physician in 1-2 days. Instructed patient to return to the ED sooner for any worsening symptoms. Patient's questions were answered. Patient understood and agreed with discharge plan. Patient discharged stable. Departure Diagnosis: Primary Impression: History of migraine Condition: Stable Patient Instructions: Headache, Migraine (Classical) Referrals: [facility] YOU HAVE RECEIVED A MEDICAL SCREENING EXAM AND THE RESULTS INDICATE THAT YOU DO NOT HAVE A CONDITION THAT REQUIRES URGENT TREATMENT IN THE EMERGENCY DEPARTMENT. FURTHER EVALUATION AND TREATMENT OF YOUR CONDITION CAN WAIT UNTIL YOU ARE SEEN IN YOUR DOCTORS OFFICE WITHIN THE NEXT 1-2 DAYS. IT IS YOUR RESPONSIBILITY TO MAKE AN APPOINTMENT FOR FOLOW-UP CARE. IF YOU HAVE A PRIMARY DOCTOR --you should call your primary doctor and schedule an appointment IF YOU DO NOT HAVE A PRIMARY DOCTOR YOU CAN CALL OUR PHYSICIAN REFERRAL HOTLINE AT IF YOU CAN NOT AFFORD TO SEE A PHYSICIAN YOU CAN CHOSE FROM THE FOLLOWING [facility] [address] [facility]. [facility] [address] [facility] [address] [facility] [address] [facility] [address] [facility]. [facility] [address] [facility]. [facility] YOU HAVE RECEIVED A MEDICAL SCREENING EXAM AND THE RESULTS INDICATE THAT YOU DO NOT HAVE A CONDITION THAT REQUIRES URGENT TREATMENT IN THE EMERGENCY DEPARTMENT. FURTHER EVALUATION AND TREATMENT OF YOUR CONDITION CAN WAIT UNTIL YOU ARE SEEN IN YOUR DOCTORS OFFICE WITHIN THE NEXT 1-2 DAYS. IT IS YOUR RESPONSIBILITY TO MAKE AN APPOINTMENT FOR FOLOW-UP CARE. IF YOU HAVE A PRIMARY DOCTOR --you should call your primary doctor and schedule and appointment IF YOU DO NOT HAVE A PRIMARY DOCTOR YOU CAN CALL OUR PHYSICIAN REFERRAL HOTLINE AT . IF YOU CAN NOT AFFORD TO SEE A PHYSICIAN YOU CAN CHOSE FROM THE FOLLOWING [facility], [facility] INSTITUTIONS: [facility] [address] [place] [address] [facility] [address] [place] [address] [facility] [address] [place] [address] [facility] URGENT CARE/SPECIALTIES Additional Instructions: Llame al doctor MAANA y gallito nickie STEVEN PARA DENTRO DE 2-3 FRANCISCO.Dgale a la secretaria que nosotros le instruimos hacer esta steven.Avise o llame si kamara condicin se empeora antes de la steven. Regresa aqui si peor o no mejor. KATLIN GARCIA PA-C Dec 09, 2016 17:26
== END 2016-12-09 15:56 | disposition home or self-care (01) ==
LOC: FTE 14:53
DX: R51 Headache (principal); R11.2 Nausea with vomiting, unspecified; F17.210 Nicotine dependence, cigarettes, uncomplicated
CPT/HCPCS: 99283

== ENCOUNTER 2017-04-08 18:29 | Emergency (ER) | END 2017-04-08 21:42 | disposition home or self-care (01) ==

== ENCOUNTER 2017-04-25 10:07 | Emergency (ER) | END 2017-04-25 13:24 | disposition home or self-care (01) ==

== ENCOUNTER 2017-05-29 12:47 | Emergency (ER) | END 2017-05-29 15:40 | disposition home or self-care (01) ==

== ENCOUNTER 2017-07-14 15:33 | Emergency (ER) | END 2017-07-14 16:12 | disposition home or self-care (01) ==

== ENCOUNTER 2017-08-21 12:10 | Emergency (ER) | END 2017-08-21 14:50 | disposition home or self-care (01) ==

== ENCOUNTER 2017-10-09 19:22 | Emergency (ER) | END 2017-10-09 22:21 | disposition home or self-care (01) ==

== ENCOUNTER 2017-12-27 14:00 | Emergency (ER) | END 2017-12-27 16:33 | disposition home or self-care (01) ==

== ENCOUNTER 2018-02-10 21:29 | Emergency (ER) | END 2018-02-11 00:36 | disposition home or self-care (01) ==

== ENCOUNTER 2018-03-14 18:46 | Emergency (ER) | payer OTHER ==
[~2018-03-14] VITALS: Ht 154.9 cm; Wt 56.6 kg
[~2018-03-14 18:46] MED LIST changes: +ACET500C5 PO; +ALBU18HF INHALATION; +BEN25 PO; +CEPH-443 PO; +CETI10CA PO; +CYCL10TA7 PO; +FLUT9.9S NASAL; +GUAI-637 PO; +GUAI5SYR2 PO; +IBUP-1542 PO; -IBUP800T25 PO; +IBUP800T48 PO; +METO10TA92 PO; -NAPR-260 PO; +NAPR-985 PO; +SODI126M NASAL; -SUMA50TA11 PO; +SUMA50TA2 PO
[2018-03-14 19:18] VITALS: Ht 154.9 cm; Wt 56.6 kg
[2018-03-14] MEDS ORDERED: METOCLOPRAMIDE 10 MG INJ IV ONE (20:30)
[2018-03-14] MEDS ORDERED: SOD CHLORIDE 0.9% 1,000 ML IV ONE (20:30)
[2018-03-14] MEDS ORDERED: DIPHENHYDRAMINE 50 MG INJ IV ONE (20:30)
--- NOTE | 2018-03-14 20:32 | ERD ---
ER Documentation Chief Complaint Chief Complaint migraine headache x 4 days, also c/o lower back pain HPI This is a 57-year-old female who presents emergency department with complaints of frontal headache that started 4 days ago. Pain was described as achy and nonradiating. Stated that she has this pain before and is very similar to her migraine headache. Patient also added that she has bilateral flank pain for about a week. Also added that she has history of pyelonephritis. LMP: 4 years ago. Stated that she has tubal ligation in 2002. A1. Denies headache, head injury, blurry vision, dizziness, neck pain, neck stiffness, throat pain, difficulty swallowing, difficulty breathing when lying flat, abdominal pain, nausea, vomiting, constipation, diarrhea, difficulty walking, loss of bowel or bladder control, or possibility of being , vaginal bleeding, vaginal discharge, trauma, injury, falls, numbness or tingling sensation, recent surgery in the last three weeks, recent travel, recent exposure to illness, recent antibiotic use in the last three months, fever, chills, seizures. Past medical history: Migraine. Surgical history: Appendectomy in 1985. ROS All systems reviewed and are negative except as per history of present illness. Medications Home Meds Active Scripts Diphenhydramine Hcl* (Benadryl*) 25 Mg Cap, 25 MG PO Q6 PRN for ITCHING/RASH, #30 TAB Prov:YOLANDA BEDOYA 03/14/18 Metoclopramide* (Reglan*) 10 Mg Tablet, 10 MG PO Q6 PRN for NAUSEA AND/OR VOMITING, #20 TAB Prov:YOLANDA BEDOYA 03/14/18 Acetamin/Butalbital/Caffeine* (Fioricet*) [id number] Tab, 1 TAB PO Q6H PRN for PAIN, #30 TAB Prov:YOLANDA BEDOYA 03/14/18 Guaifenesin* (Robitussin*) 100 Mg/5 Ml Syrup, 200 MG PO Q6H PRN for COUGH, #120 ML Prov:PREETI MIMS GEODESIST 02/10/18 Sodium Chloride (Saline Nasal Mist) 126 Ml Mist, 2 SPRAY NASAL Q2H PRN for NASAL CONGESTION, #1 BOTTLE Prov:PREETI MIMS GEODESIST 02/10/18 Acetamin/Butalbital/Caffeine* (Fioricet*) [id number] Tab, 1 TAB PO Q4H PRN for PAIN LEVEL 1-5, #30 TAB Prov:PREETI MIMS NP 02/10/18 Metoclopramide* (Reglan*) 10 Mg Tablet, 10 MG PO BID PRN for NAUSEA AND/OR VOMITING, #10 TAB Prov:CRISTA OLMEDO MD 12/27/17 Acetamin/Butalbital/Caffeine* (Fioricet*) [id number] Tab, 1 TAB PO Q6H PRN for PAIN, #30 TAB Prov:CRISTA OLMEDO MD 12/27/17 Ibuprofen* (Motrin*) 600 Mg Tab, 600 MG PO Q6, #30 TAB Prov:CHARLINE BOWENS PA-C 10/09/17 Cephalexin* (Keflex*) 500 Mg Capsule, 500 MG PO QID for 5 Days, CAP Prov:CHARLINE BOWENSC 10/09/17 Cyclobenzaprine Hcl* (Cyclobenzaprine Hcl*) 10 Mg Tablet, 10 MG PO TID, #15 TAB Prov:CHARLINE BOWENSC 10/09/17 Naproxen* (Naprosyn*) 500 Mg Tablet, 500 MG PO BID PRN for PAIN AND/OR INFLAMMATION, #30 TAB Prov:CHARLINE BOWENSC 10/09/17 Ondansetron Hcl* (Zofran*) 4 Mg Tablet, 4 MG PO Q8H PRN for NAUSEA AND/OR VOMITING, #30 TAB Prov:CRISTA OLMEDO MD 08/21/17 Acetamin/Butalbital/Caffeine* (Fioricet*) [id number] Tab, 1 TAB PO Q6H PRN for PAIN, #30 TAB Prov:CRISTA OLMEDO MD 08/21/17 Acetamin/Butalbital/Caffeine* (Fioricet*) [id number] Tab, 1 TAB PO Q6H PRN for PAIN, #30 TAB Prov:ORD HOWELLC 07/14/17 Ondansetron Hcl* (Zofran*) 4 Mg Tablet, 4 MG PO Q8H PRN for NAUSEA AND/OR VOMITING, #30 TAB Prov:CRISTA OLMEDO MD 05/29/17 Acetamin/Butalbital/Caffeine* (Fioricet*) [id number] Tab, 1 TAB PO Q6H PRN for PAIN, #30 TAB Prov:CRISTA OLMEDO MD 05/29/17 Fluticasone Propionate (Flonase Allergy Relief) 9.9 Ml [place].susp, 2 SPRAY NASAL DAILY, #1 BOTTLE TO EACH NOSTRIL Prov:HAILEY HALL PA-C 04/25/17 Guaifenesin-Dextromethorphan* (Robitussin* DM) 100MG/10MG/5ML Syrup, 10 ML PO Q6H PRN for COUGH for 5 Days, ML Prov:HAILEY HALL PA-C 04/25/17 Cetirizine Hcl* (Zyrtec*) 10 Mg Capsule, 10 MG PO DAILY, #14 TAB.CHEW Prov:HAILEY HALL PA-C 04/25/17 Albuterol Sulfate* (Ventolin HFA*) 18 Gm Hfa.aer.ad, 2 PUFF INHALATION Q4H, #1 INHALER Prov:HAILEY HALL PA-C 04/25/17 Acetaminophen* (Tylophen*) 500 Mg Capsule, 1 CAP PO Q6H PRN for PAIN AND OR ELEVATED TEMP, #30 CAP Prov:HAILEY HALL PA-C 04/25/17 Ibuprofen* (Motrin*) 600 Mg Tab, 600 MG PO Q6, #30 TAB Prov:HAILEY HALL PA-C 04/25/17 Acetamin/Butalbital/Caffeine* (Fioricet*) [id number] Tab, 1 TAB PO Q6H PRN for PAIN, #20 TAB Prov:YOLANDA BEDOYA 04/08/17 Metoclopramide* (Reglan*) 10 Mg Tablet, 10 MG PO Q6 PRN for NAUSEA AND/OR VOMITING, #10 TAB Prov:YOLANDA BEDOYA 04/08/17 Diphenhydramine Hcl* (Benadryl*) 25 Mg Cap, 25 MG PO Q6, #30 CAP Prov:YOLANDA BEDOYA 04/08/17 Acetamin/Butalbital/Caffeine* (Fioricet*) [id number] Tab, 1 TAB PO Q6H PRN for PAIN, #30 TAB Prov:KATLIN GARCIA PA-C 12/09/16 Ondansetron (Ondansetron Odt) 4 Mg Tab.rapdis, 4 MG PO Q6H PRN for NAUSEA AND/OR VOMITING, #20 TAB Prov:JANKI ANDRADE PA-C 09/02/16 Acetamin/Butalbital/Caffeine* (Fioricet*) [id number] Tab, 1 TAB PO Q6H PRN for PAIN, #30 TAB Prov:JANKI ANDRADE PA-C 09/02/16 Acetamin/Butalbital/Caffeine* (Fioricet*) [id number] Tab, 1 TAB PO Q6H PRN for PAIN, #15 TAB Prov:BROOKE REED 06/06/16 Ondansetron Hcl* (Zofran*) 4 Mg Tablet, 4 MG PO Q6H for NAUSEA AND/OR VOMITING, #9 TAB Prov:BENNY MAHMOOD, GEODESIST 04/03/16 Acetamin/Butalbital/Caffeine* (Fioricet*) [id number] Tab, 1 TAB PO Q6H PRN for PAIN, #15 TAB Prov:BENNY MAHMOOD, GEODESIST 04/03/16 Acetamin/Butalbital/Caffeine* (Fioricet*) [id number] Tab, 1 TAB PO Q6H PRN for PAIN, #30 TAB Prov:RUBIA POLANCO PA-C 03/13/16 Ondansetron (Ondansetron Odt) 4 Mg Tab.rapdis, 4 MG PO Q6H PRN for NAUSEA AND/OR VOMITING, #10 TAB Prov:NOA GIBSON DO 12/17/15 Naproxen* (Naprosyn*) 500 Mg Tablet, 500 MG PO BID PRN for PAIN AND/OR INFLAMMATION, #10 TAB Prov:NOA GIBSON DO 12/17/15 Acetamin/Butalbital/Caffeine* (Fioricet*) 1 Tab Tab, 1 TAB PO Q4H PRN for PAIN LEVEL 1-5, #15 TAB Prov:RUBIA POLANCO PA-C 11/27/15 Sumatriptan Succinate* (Imitrex*) 50 Mg Tablet, 50 MG PO BID PRN for MIGRAINE HEADACHE, #30 TAB May repeat after 2 hours if needed; MAX 200 mg/24 hours Prov:RUBIA POLANCO PA-C 11/27/15 Hydrocodone Bit-Acetaminophen* (Cawood*) 5-325 Mg Tab, 1 TAB PO Q6 PRN for PAIN, #16 TAB Prov:AMANDEEP RIVERA MD 10/19/15 Ondansetron Hcl* (Zofran* ODT) 8 mg -ODT Tab.disper, 8 MG PO Q6 PRN for NAUSEA AND/OR VOMITING, #10 TAB Prov:AMANDEEP RIVERA MD 10/19/15 Hydrocodone Bit-Acetaminophen* (Cawood*) 5-325 Mg Tab, 1 TAB PO Q6 PRN for PAIN, #16 TAB Prov:AMANDEEP RIVERA MD 05/30/15 Prochlorperazine* (Prochlorperazine*) 10 Mg Tablet, 10 MG PO Q6 PRN for NAUSEA AND/OR VOMITING, #10 TAB Prov:KALANI ARREAGA DO 04/24/15 Ibuprofen* (Motrin*) 800 Mg Tab, 800 MG PO Q6H PRN for PAIN AND OR ELEVATED TEMP, #30 TAB Prov:ELSY ARREAGASTOLOS ANegro DO 04/24/15 Hydrocodone Bit-Acetaminophen* (Cawood*) 7.5-325 Tablet, 2 TAB PO Q4H PRN for PAIN, #30 TAB Prov:ELSY ARREAGASTOLOS ANegro DO 04/24/15 Acetamin/Butalbital/Caffeine* (Fioricet*) 1 Tab Tab, 1 TAB PO Q4H PRN for PAIN LEVEL 1-5, #30 TAB Prov:RUBIA POLANCO PA-C 02/12/15 Ondansetron Hcl* (Zofran*) 4 Mg Tablet, 4 MG PO Q8, #20 TAB Prov:JOSE ERITUTREMAINE 01/18/15 Hnhrrjeozcbew-Paduwxhoul-Uwzgarsd-Codeine* (Fioricet w/ Codeine*) [id number] Capsule, 1 CAP PO Q6H PRN for PAIN LEVEL 1-5, #20 CAP Prov:JOSE ERITUTREMAINE 01/18/15 Ondansetron Hcl* (Zofran* ODT) 8 mg -ODT Tab.disper, 8 MG PO Q6H PRN for NAUSEA AND OR VOMITING, #20 TAB Prov:JANKI ANDRADE PA-C 12/26/14 Zyoflmdyzlbgc-Axqptkkkem-Fsokcsel-Codeine* (Fioricet w/Codeine*) [id number] Cap, 1 CAP PO Q4H PRN for PAIN LEVEL 1-5, #20 CAP Prov:JANKI ANDRADE PA-C 12/26/14 Amoxicillin-Clavulanate K* (Augmentin*) 875 Mg Tab, 875 MG PO BID for 7 Days, TAB Prov:REVA MA. 11/01/14 Acetaminophen-Codeine* (Acetaminophen-Cod #3*) 300-30 Mg Tab, 1 TAB PO Q6 PRN for PAIN, #10 TAB Prov:REVA MA. 11/01/14 Wyymfophxrtar-Dzwowxgndy-Umfpwfep-Codeine* (Fioricet w/ Codeine*) [id number] Capsule, 1 CAP PO Q6H PRN for PAIN LEVEL 1-5, #8 CAP Prov:JANKI ANDRADE PA-C 09/22/14 Ondansetron Hcl* (Zofran* ODT) 8 mg -ODT Tab.disper, 8 MG PO Q6 PRN for NAUSEA AND/OR VOMITING, #20 TAB Prov:JANKI ANDRADE PA-C 09/22/14 Allergies Allergies: Coded Allergies: No Known Allergy (Unverified , 12/27/17) PMhx/Soc History of Surgery: Yes (Roni Tubal Ligation, appendectomy) Anesthesia Reaction: No Hx Neurological Disorder: Yes (Migraine HAs) Hx Respiratory Disorders: No Hx Cardiac Disorders: Yes (HTN) Hx Psychiatric Problems: No Hx Miscellaneous Medical Probl: No Hx Alcohol Use: No Hx Substance Use: No Hx Tobacco Use: No Smoking Status: Never smoker Physical Exam Vitals Vital Signs Date Temp Pulse Resp B/P (MAP) Pulse Ox O2 O2 Flow FiO2 Time Delivery Rate 03/14/18 97.9 84 19 115/64 98 Room Air 22:11 (81) 03/14/18 97.5 99 18 112/73 98 19:18 (86) Physical Exam Const: No acute distress Head: Atraumatic Eyes: Normal Conjunctiva. There is no visual field loss. There is no pain in eye movement. ENT: Normal External Ears, Nose and Mouth. Bilateral TMs are not erythematous. No bleeding. No discharge. No mastoid tenderness. Throat: Uvula is midline and at the tonsils are +1 bilaterally without redness without exudates. Tolerating secretions with bleeding every. Speaks full increase s entences. Patent airway. Neck: Full range of motion. No meningismus. No nuchal rigidity. No signs of meningeal irritation. Resp: Clear to auscultation bilaterally Cardio: Regular rate and rhythm, no murmurs Abd: Soft, non tender, non distended. Normal bowel sounds. Negative Jorge sign. Negative Mary Kate sign (heel jar test). Negative psoas sign. Negative Rovsing sign. Skin: No petechiae or rashes Back: No midline or flank tenderness. Has bilateral CVA tenderness. Ext: No cyanosis, or edema. No saddle anesthesia. No neurovascular deficits. Neur: Awake and alert. No facial droop. Equal sanitary chemist. Sensation is intact. Equal strength in bilateral upper and lower extremities. Romberg test negative. No neurological deficits. Psych: Normal Mood and Affect Result Diagram: 03/14/18202403/14/182049 Results 24 hrs Laboratory Tests Test 03/14/18 20:25 03/14/18 20:30 03/14/18 20:50 White Blood Count 6.9 10^3/ul Red Blood Count 4.60 10^6/ul Hemoglobin 12.3 g/dl Hematocrit 37.1 % Mean Corpuscular Volume 80.7 fl Mean Corpuscular Hemoglobin 26.7 pg Mean Corpuscular 33.2 g/dl Hemoglobin Concent Red Cell Distribution Width 13.2 % Platelet Count 421 10^3/UL Mean Platelet Volume 9.4 fl Immature Granulocytes % 0.300 % Neutrophils % 58.5 % Lymphocytes % 33.3 % Monocytes % 6.3 % Eosinophils % 1.3 % Basophils % 0.3 % Nucleated Red Blood Cells % 0.0 /100WBC Immature Granulocytes # 0.020 10^3/ul Neutrophils # 4.1 10^3/ul Lymphocytes # 2.3 10^3/ul Monocytes # 0.4 10^3/ul Eosinophils # 0.1 10^3/ul Basophils # 0.0 10^3/ul Nucleated Red Blood Cells # 0.0 10^3/ul Urine Color YELLOW Urine Clarity CLEAR Urine pH 5.0 Urine Specific [place] 1.017 Urine Ketones TRACE mg/dL Urine Nitrite NEGATIVE mg/dL Urine Bilirubin NEGATIVE mg/dL Urine Urobilinogen NEGATIVE mg/dL Urine Leukocyte Esterase NEGATIVE Domenic/ul Urine Microscopic RBC 0 /HPF Urine Microscopic WBC 1 /HPF Urine Hemoglobin 1+ mg/dL Urine Glucose NEGATIVE mg/dL Urine Total Protein NEGATIVE mg/dl Urine Test NEGATIVE Sodium Level 145 mmol/L Potassium Level 3.5 mmol/L Chloride Level 106 mmol/L Carbon Dioxide Level 21 mmol/L Anion Gap 18 Blood Urea Nitrogen 19 mg/dl Creatinine 0.62 mg/dl Est Glomerular Filtrat > 60 mL/min Rate mL/min Glucose Level 93 mg/dl Calcium Level 9.9 mg/dl Total Bilirubin 0.2 mg/dl Direct Bilirubin 0.00 mg/dl Indirect Bilirubin 0.2 mg/dl Aspartate Amino 37 IU/L Transf (AST/SGOT) Alanine 59 IU/L Aminotransferase (ALT/SGPT) Alkaline Phosphatase 201 IU/L Total Protein 7.6 g/dl Albumin 4.8 g/dl Globulin 2.80 g/dl Albumin/Globulin Ratio 1.71 Amylase Level 105 U/L Lipase 148 U/L Current Medications Medications Dose Sig/[place] Start Time Status Last (Trade) Ordered Route PRN Stop Time Admin Dose Reason Admin Sodium 1,000 ml @ Q1H ONCE 03/14/18 DC 03/14/18 Chloride 1,000 mls/hr IV 20:30 20:59 03/14/18 21:29 25 mg ONCE ONCE 03/14/18 DC 03/14/18 Diphenhydrami IV 20:30 20:53 ne HCl 03/14/18 (Benadryl) 20:31 10 mg ONCE ONCE 03/14/18 DC 03/14/18 Metoclopramid IV 20:30 20:53 e HCl 03/14/18 (Reglan) 20:31 Morphine 4 mg ONCE STAT 03/14/18 DC Sulfate IV 20:59 (morphine) 03/14/18 21:04 500 mg ONCE STAT 03/14/18 DC Acetaminophen PO 21:03 (Tylenol 03/14/18 Tab) 21:04 Procedures/MDM Diagnostic tests: Urine : Negative. Urinalysis: Reviewed. Culture urine: Sent. Blood works: Reviewed. Renal ultrasound: 1. Negative exam for obstructive uropathy or acute renal abnormality. 2. Punctate, nonobstructing calculi versus small parenchymal calcifications seen bilaterally. Treatment: Saline lock. Normal saline IV bolus. Benadryl IV. Reglan IV. Re-evaluation: Negative Jorge sign. Negative Mary Kate sign (heel jar test). Negative psoas sign. Negative Rovsing sign. No CVA tenderness. Ambulatory with steady gait. Able to jump twice without developing lower abdominal pain. No unilateral deficits. No facial droop. Romberg test is negative. No neurological deficits. Ambulatory with steady gait. Stated that she is comfortable going home. Differential diagnosis I have low suspicion for subarachnoid hemorrhage, stroke, sepsis, obstructing kidney stones, pyelonephritis, AAA, appendicitis, cholecystitis, diverticulitis. Final diagnosis: Migraine. Flank pain. Prescription: Fioricet. Reglan. Benadryl. Follow-up with PCP in the next 24-48 hours. Come back here in the emergency department for any new symptoms or any worsening symptoms. All questions and concerns were answered. Patient and family members verbalized understanding and agreed with plan of care. Hemodynamically stable on discharge. Departure Diagnosis: Primary Impression: Migraine Additional Impression: Flank pain Condition: Stable Additional Instructions: Follow-up with PCP in the next 24-48 hours. Come back here in the emergency department for any new symptoms or any worsening symptoms. YOLANDA BEDOYA Mar 14, 2018 20:32
[2018-03-14] MEDS ORDERED: morphine 4 MG/ML VIAL IV STA (20:59)
[2018-03-14] MEDS: ACETAMINOPHEN 500 MG TAB PO STA ×2 (21:30→21:33)
[2018-03-14] MEDS ORDERED: FIORICET PO (21:59)
[2018-03-14] MEDS ORDERED: METO10TA92 PO (22:00)
[2018-03-14] MEDS ORDERED: BEN25 PO (22:01)
[2018-03-14 22:11] VITALS: BP 115/64; PULSE 84; RESP 19
== END 2018-03-14 22:57 | disposition home or self-care (01) ==
LOC: FTE 18:46
DX: G43.909 Migraine, unspecified, not intractable, without status migrainosus (principal); I10 Essential (primary) hypertension; R10.9 Unspecified abdominal pain
CPT/HCPCS: 76775; 80053; 81001; 82150; 83690; 84703; 85025; 87086; 96361; 96374; 96375; J1200; J2765; J7030; Z7502; Z7610

== ENCOUNTER 2018-04-02 19:37 | Emergency (ER) | payer OTHER ==
[~2018-04-02] VITALS: Wt 57.0 kg
[2018-04-02] MEDS ORDERED: FIORICET PO (22:12)
--- NOTE | 2018-04-02 22:18 | ERD ---
ER Documentation Chief Complaint Chief Complaint bib self, cc: headache , migrain x 2 days HPI 7-year-old female patient with no significant past medical history presents to the ED wanting a medication refill for Fioricet for her migraine headaches. Patient reports that usually when she takes Fioricet, it helps with her symptoms. States that she was feeling nauseous however had Reglan at home, therefore took 1 tablet and felt better. Denies any fever, neck stiffness, cough, rhinorrhea, chest pain, shortness of breath, abdominal pain. ROS All systems reviewed and are negative except as per history of present illness. Medications Home Meds Active Scripts Acetamin/Butalbital/Caffeine* (Fioricet*) [id number] Tab, 1 TAB PO Q6H PRN for PAIN, #30 TAB Prov:KATLIN GARCIA PA-C 04/02/18 Diphenhydramine Hcl* (Benadryl*) 25 Mg Cap, 25 MG PO Q6 PRN for ITCHING/RASH, #30 TAB Prov:YOLANDA BEDOYA F 03/14/18 Metoclopramide* (Reglan*) 10 Mg Tablet, 10 MG PO Q6 PRN for NAUSEA AND/OR VOMITING, #20 TAB Prov:YOLANDA BEDOYA F 03/14/18 Acetamin/Butalbital/Caffeine* (Fioricet*) [id number] Tab, 1 TAB PO Q6H PRN for PAIN, #30 TAB Prov:YOLANDA BEDOYA F 03/14/18 Guaifenesin* (Robitussin*) 100 Mg/5 Ml Syrup, 200 MG PO Q6H PRN for COUGH, #120 ML Prov:PREETI MIMS NP 02/10/18 Sodium Chloride (Saline Nasal Mist) 126 Ml Mist, 2 SPRAY NASAL Q2H PRN for NASAL CONGESTION, #1 BOTTLE Prov:PREETI MIMS NP 02/10/18 Acetamin/Butalbital/Caffeine* (Fioricet*) [id number] Tab, 1 TAB PO Q4H PRN for PAIN LEVEL 1-5, #30 TAB Prov:PREETI MIMS NP 02/10/18 Metoclopramide* (Reglan*) 10 Mg Tablet, 10 MG PO BID PRN for NAUSEA AND/OR VOMITING, #10 TAB Prov:CRISTA OLMEDO MD 12/27/17 Acetamin/Butalbital/Caffeine* (Fioricet*) [id number] Tab, 1 TAB PO Q6H PRN for PAIN, #30 TAB Prov:CRISTA OLMEDO MD 12/27/17 Ibuprofen* (Motrin*) 600 Mg Tab, 600 MG PO Q6, #30 TAB Prov:CHARLINE BOWENSC 10/09/17 Cephalexin* (Keflex*) 500 Mg Capsule, 500 MG PO QID for 5 Days, CAP Prov:CHARLINE BOWENS PA-C 10/09/17 Cyclobenzaprine Hcl* (Cyclobenzaprine Hcl*) 10 Mg Tablet, 10 MG PO TID, #15 TAB Prov:CHARLINE BOWENS PA-C 10/09/17 Naproxen* (Naprosyn*) 500 Mg Tablet, 500 MG PO BID PRN for PAIN AND/OR INFLAMMATION, #30 TAB Prov:CHARLINE BOWENSC 10/09/17 Ondansetron Hcl* (Zofran*) 4 Mg Tablet, 4 MG PO Q8H PRN for NAUSEA AND/OR VOMITING, #30 TAB Prov:CRISTA OLMEDO MD 08/21/17 Acetamin/Butalbital/Caffeine* (Fioricet*) [id number] Tab, 1 TAB PO Q6H PRN for PAIN, #30 TAB Prov:CRISTA OLMEDO MD 08/21/17 Acetamin/Butalbital/Caffeine* (Fioricet*) [id number] Tab, 1 TAB PO Q6H PRN for PAIN, #30 TAB Prov:ROD HOWELL PA-C 07/14/17 Ondansetron Hcl* (Zofran*) 4 Mg Tablet, 4 MG PO Q8H PRN for NAUSEA AND/OR VOMITING, #30 TAB Prov:CRISTA OLMEDO MD 05/29/17 Acetamin/Butalbital/Caffeine* (Fioricet*) [id number] Tab, 1 TAB PO Q6H PRN for PAIN, #30 TAB Prov:CRISTA OLMEDO MD 05/29/17 Fluticasone Propionate (Flonase Allergy Relief) 9.9 Ml Maurice.susp, 2 SPRAY NASAL DAILY, #1 BOTTLE TO EACH NOSTRIL Prov:HAILEY HALL PA-C 04/25/17 Guaifenesin-Dextromethorphan* (Robitussin* DM) 100MG/10MG/5ML Syrup, 10 ML PO Q6H PRN for COUGH for 5 Days, ML Prov:HAILEY HALLC 04/25/17 Cetirizine Hcl* (Zyrtec*) 10 Mg Capsule, 10 MG PO DAILY, #14 TAB.CHEW Prov:HAILEY HALL PA-C 04/25/17 Albuterol Sulfate* (Ventolin HFA*) 18 Gm Hfa.aer.ad, 2 PUFF INHALATION Q4H, #1 INHALER Prov:HAILEY HALL PA-C 04/25/17 Acetaminophen* (Tylophen*) 500 Mg Capsule, 1 CAP PO Q6H PRN for PAIN AND OR ELEVATED TEMP, #30 CAP Prov:HAILEY HALL PA-C 04/25/17 Ibuprofen* (Motrin*) 600 Mg Tab, 600 MG PO Q6, #30 TAB Prov:HAILEY HALLC 04/25/17 Acetamin/Butalbital/Caffeine* (Fioricet*) [id number] Tab, 1 TAB PO Q6H PRN for PAIN, #20 TAB Prov:YOLANDA BEDOYA 04/08/17 Metoclopramide* (Reglan*) 10 Mg Tablet, 10 MG PO Q6 PRN for NAUSEA AND/OR VO MITING, #10 TAB Prov:PETERILAYOLANDA NORRIS 04/08/17 Diphenhydramine Hcl* (Benadryl*) 25 Mg Cap, 25 MG PO Q6, #30 CAP Prov:PETERILADARLING NORRISAR F 04/08/17 Acetamin/Butalbital/Caffeine* (Fioricet*) [id number] Tab, 1 TAB PO Q6H PRN for PAIN, #30 TAB Prov:KATLIN GARCIA PA-C 12/09/16 Ondansetron (Ondansetron Odt) 4 Mg Tab.rapdis, 4 MG PO Q6H PRN for NAUSEA AND/OR VOMITING, #20 TAB Prov:JANKI ANDRADE PA-C 09/02/16 Acetamin/Butalbital/Caffeine* (Fioricet*) [id number] Tab, 1 TAB PO Q6H PRN for PAIN, #30 TAB Prov:JANKI ANDRADE PA-C 09/02/16 Acetamin/Butalbital/Caffeine* (Fioricet*) [id number] Tab, 1 TAB PO Q6H PRN for PAIN, #15 TAB Prov:BROOKE REED 06/06/16 Ondansetron Hcl* (Zofran*) 4 Mg Tablet, 4 MG PO Q6H for NAUSEA AND/OR VOMITING, #9 TAB Prov:BENNY MAHMOOD, SERVICE MECHANIC 04/03/16 Acetamin/Butalbital/Caffeine* (Fioricet*) [id number] Tab, 1 TAB PO Q6H PRN for PAIN, #15 TAB Prov:BENNY MAHMOOD, SERVICE MECHANIC 04/03/16 Acetamin/Butalbital/Caffeine* (Fioricet*) [id number] Tab, 1 TAB PO Q6H PRN for PAIN, #30 TAB Prov:RUBIA POLANCO PA-C 03/13/16 Ondansetron (Ondansetron Odt) 4 Mg Tab.rapdis, 4 MG PO Q6H PRN for NAUSEA AND/OR VOMITING, #10 TAB Prov:NOA GIBSON DO 12/17/15 Naproxen* (Naprosyn*) 500 Mg Tablet, 500 MG PO BID PRN for PAIN AND/OR INFLAMMATION, #10 TAB Prov:NOA GIBSON DO 12/17/15 Acetamin/Butalbital/Caffeine* (Fioricet*) 1 Tab Tab, 1 TAB PO Q4H PRN for PAIN LEVEL 1-5, #15 TAB Prov:RUBIA POLANCO PA-C 11/27/15 Sumatriptan Succinate* (Imitrex*) 50 Mg Tablet, 50 MG PO BID PRN for MIGRAINE HEADACHE, #30 TAB May repeat after 2 hours if needed; MAX 200 mg/24 hours Prov:RUBIA POLANCO PA-C 11/27/15 Hydrocodone Bit-Acetaminophen* ([place]*) 5-325 Mg Tab, 1 TAB PO Q6 PRN for PAIN, #16 TAB Prov:AMANDEEP RIVERA MD 10/19/15 Ondansetron Hcl* (Zofran* ODT) 8 mg -ODT Tab.disper, 8 MG PO Q6 PRN for NAUSEA AND/OR VOMITING, #10 TAB Prov:AMANDEEP RIVERA MD 10/19/15 Hydrocodone Bit-Acetaminophen* ([place]*) 5-325 Mg Tab, 1 TAB PO Q6 PRN for PAIN, #16 TAB Prov:AMANDEEP RIVERA MD 05/30/15 Prochlorperazine* (Prochlorperazine*) 10 Mg Tablet, 10 MG PO Q6 PRN for NAUSEA AND/OR VOMITING, #10 TAB Prov:KALANI ARREAGA DO 04/24/15 Ibuprofen* (Motrin*) 800 Mg Tab, 800 MG PO Q6H PRN for PAIN AND OR ELEVATED TEMP, #30 TAB Prov:KALANI ARREAGA DO 04/24/15 Hydrocodone Bit-Acetaminophen* ([place]*) 7.5-325 Tablet, 2 TAB PO Q4H PRN for PAIN, #30 TAB Prov:KALANI ARREAGA DO 04/24/15 Acetamin/Butalbital/Caffeine* (Fioricet*) 1 Tab Tab, 1 TAB PO Q4H PRN for PAIN LEVEL 1-5, #30 TAB Prov:RUBIA POLANCO PA-C 02/12/15 Ondansetron Hcl* (Zofran*) 4 Mg Tablet, 4 MG PO Q8, #20 TAB Prov:TREMAINE GARNICA 01/18/15 Iqqxrnthknofq-Xirvtidstq-Buvbfups-Codeine* (Fioricet w/ Codeine*) [id number] Capsule, 1 CAP PO Q6H PRN for PAIN LEVEL 1-5, #20 CAP Prov:TREMAINE GARNICA 01/18/15 Ondansetron Hcl* (Zofran* ODT) 8 mg -ODT Tab.disper, 8 MG PO Q6H PRN for NAUSEA AND OR VOMITING, #20 TAB Prov:JANKI ANDRADE PA-C 12/26/14 Xdgitgpgsyyjh-Usjyyryxol-Yjbclmzh-Codeine* (Fioricet w/Codeine*) [id number] Cap, 1 CAP PO Q4H PRN for PAIN LEVEL 1-5, #20 CAP Prov:JANKI ANDRADE PA-C 12/26/14 Amoxicillin-Clavulanate K* (Augmentin*) 875 Mg Tab, 875 MG PO BID for 7 Days, TAB Prov:REVA MA. 11/01/14 Acetaminophen-Codeine* (Acetaminophen-Cod #3*) 300-30 Mg Tab, 1 TAB PO Q6 PRN for PAIN, #10 TAB Prov:REVA MA M. 11/01/14 Lfukzrjdclbae-Nlsmdedqju-Ojrwltub-Codeine* (Fioricet w/ Codeine*) [id number] Capsule, 1 CAP PO Q6H PRN for PAIN LEVEL 1-5, #8 CAP Prov:JANKI ANDRADE PA-C 09/22/14 Ondansetron Hcl* (Zofran* ODT) 8 mg -ODT Tab.disper, 8 MG PO Q6 PRN for NAUSEA AND/OR VOMITING, #20 TAB Prov:JANKI ANDRADE PA-C 09/22/14 Allergies Allergies: Coded Allergies: No Known Allergy (Unverified , 12/27/17) PMhx/Soc History of Surgery: Yes (tubal ligation, appendectomy) Anesthesia Reaction: No Hx Neurological Disorder: Yes (Migraine HAs) Hx Respiratory Disorders: No Hx Cardiac Disorders: Yes (HTN) Hx Psychiatric Problems: No Hx Miscellaneous Medical Probl: Yes (migraine headache) Hx Alcohol Use: No Hx Substance Use: No Hx Tobacco Use: No FmHx Family History: No diabetes, No coronary disease Physical Exam Vitals Vital Signs Date Temp Pulse Resp B/P (MAP) Pulse Ox O2 O2 Flow FiO2 Time Delivery Rate 04/02/18 98.1 95 19 116/65 100 19:41 (82) Physical Exam Const: Tyy-mta-mkewibymp, well-nourished. In no acute distress. Head: Atraumatic, normocephalic Eyes: Normal Conjunctiva without injection. No purulent discharge. PERRLA. EOMI ENT: Normal external ear. Ear canal without erythema. Tympanic membrane pearly finn without effusion or bulging. Nasal canal clear with normal turbinates. Moist oropharynx without tonsillar exudates. Non-erythematous pharynx. Uvula midline. No drooling. No trismus. Neck: No cervical midline tenderness. Full range of motion. No meningismus. No cervical lymphadenopathy. No JVD. Resp: Clear to auscultation bilaterally. No wheezing, rhonchi, rales, or crackles. No accessory muscle use. No retractions. Cardio: Regular rate and rhythm. No murmurs, rubs or gallops. Abd: Soft, non tender, non distended. Normal bowel sounds. No palpable masses. No rebound tenderness. No guarding. Negative McBurney's Point. Negative Jorge's Sign. Skin: Normal skin turgor. No petechiae or rashes Back: No midline tenderness. No CVA tenderness. Ext: No cyanosis, or edema. Distal pulses intact bilaterally. Neur: Awake and alert. Normal gait. Normal coordination. Cranial Nerves II- VII intact. Normal finger to nose. Muscle strength 5/5. Sensation intact. Psych: Normal Mood and Affect Procedures/MDM 57-year-old female patient with no significant past medical history presents to the ED complaining of a headache that started 2 days ago. Patient reports that she feels better after taking Reglan. Patient reports that she only wants a medication refill for Fioricet. Patient is afebrile and nontoxic-appearing. Low suspicion for intracranial bleed, subarachnoid hemorrhage, meningitis, TIA, stroke, subdural hematoma, epidural hematoma, or other emergent conditions. Diagnosis: Migraine Discharge medications: Fioricet Follow up with primary care physician in 1-2 days. Instructed patient to return to the ED sooner for any worsening symptoms. Patient's questions were answered. Patient is hemodynamically stable. Patient understood and agreed with discharge plan. Patient discharged stable. Disclaimer: Inadvertent spelling and grammatical errors are likely due to EHR /dictation software use and do not reflect on the overall quality of patient care. Also, please note that the electronic time recorded on this note does not necessarily reflect the actual time of the patient encounter. Departure Diagnosis: Primary Impression: Migraine Migraine type: unspecified Status migrainosus presence: without status migrainosus Intractability: not intractable Qualified Codes: G43.909 - Migraine, unspecified, not intractable, without status migrainosus Condition: Stable Patient Instructions: Migraine Headache: Stages and Treatment, Headache, Anthony pop (Classical) Referrals: [facility] YOU HAVE RECEIVED A MEDICAL SCREENING EXAM AND THE RESULTS INDICATE THAT YOU DO NOT HAVE A CONDITION THAT REQUIRES URGENT TREATMENT IN THE EMERGENCY DEPARTMENT. FURTHER EVALUATION AND TREATMENT OF YOUR CONDITION CAN WAIT UNTIL YOU ARE SEEN IN YOUR DOCTORS OFFICE WITHIN THE NEXT 1-2 DAYS. IT IS YOUR RESPONSIBILITY TO MAKE AN APPOINTMENT FOR FOLOW-UP CARE. IF YOU HAVE A PRIMARY DOCTOR --you should call your primary doctor and schedule an appointment IF YOU DO NOT HAVE A PRIMARY DOCTOR YOU CAN CALL OUR PHYSICIAN REFERRAL HOTLINE AT IF YOU CAN NOT AFFORD TO SEE A PHYSICIAN YOU CAN CHOSE FROM THE FOLLOWING [facility] [address] [facility]. [facility] [address] [facility]. [facility] [address] [facility] [facility] [address] [facility] [facility] [address] [facility]. [facility]. [address] [facility]. [facility] YOU HAVE RECEIVED A MEDICAL SCREENING EXAM AND THE RESULTS INDICATE THAT YOU DO NOT HAVE A CONDITION THAT REQUIRES URGENT TREATMENT IN THE EMERGENCY DEPARTMENT. FURTHER EVALUATION AND TREATMENT OF YOUR CONDITION CAN WAIT UNTIL YOU ARE SEEN IN YOUR DOCTORS OFFICE WITHIN THE NEXT 1-2 DAYS. IT IS YOUR RESPONSIBILITY TO MAKE AN APPOINTMENT FOR FOLOW-UP CARE. IF YOU HAVE A PRIMARY DOCTOR --you should call your primary doctor and schedule and appointment IF YOU DO NOT HAVE A PRIMARY DOCTOR YOU CAN CALL OUR PHYSICIAN REFERRAL HOTLINE AT . IF YOU CAN NOT AFFORD TO SEE A PHYSICIAN YOU CAN CHOSE FROM THE FOLLOWING [facility]: [facility] [address] [place] [address] [facility] [address] [place] [address] [facility] + [facility] [address] [place] [address] [facility] URGENT CARE/SPECIALTIES Additional Instructions: Call your primary care doctor TOMORROW for an appointment during the next 2-3 days.See the doctor sooner or return here if your condition worsens before your appointment time. KATLIN GARCIA PA-C Apr 02, 2018 22:18
[2018-04-02 23:00] VITALS: BP 119/68; PULSE 72; RESP 18
== END 2018-04-02 23:00 | disposition home or self-care (01) ==
LOC: FTE 19:37
DX: G43.909 Migraine, unspecified, not intractable, without status migrainosus (principal); I10 Essential (primary) hypertension
CPT/HCPCS: 99283

== ENCOUNTER 2018-07-22 13:37 | Emergency (ER) | payer OTHER ==
[~2018-07-22] VITALS: Wt 65.9 kg
[2018-07-22] MEDS ORDERED: BUTA1CAP38 PO (16:21)
[2018-07-22] MEDS ORDERED: ONDA4TAB14 PO (16:30)
[2018-07-22 16:34] VITALS: BP 118/59; PULSE 75; RESP 18
--- NOTE | 2018-07-22 16:45 | ERD ---
ER Documentation Chief Complaint Chief Complaint "migraine headache" HPI 57-year-old female patient with no significant past medical history presents the ED complaining of wanting a medication refill. Patient reports that she is here to refill Fioricet. Patient rates her pain a 5 out of 10 and describes it as pressure-like. States that she had a gradual onset of a migraine headache with photophobia and phonophobia that started about 2 days ago. States that usually these outpatient medications do work for her symptoms and she is just here for a refill of her medications. Patient denies any head or neck injuries. Denies any neck stiffness, fever. Patient eyes any vision loss, blurred vision, seeing floaters. Denies any dizziness, chest pain, shortness of breath. She reports that being in a dark room or wear sunglasses improves her pain. ROS All systems reviewed and are negative except as per history of present illness. Medications Home Meds Active Scripts Ondansetron (Ondansetron Odt) 4 Mg Tab.rapdis, 4 MG PO Q6H PRN for NAUSEA AND/OR VOMITING, #10 TAB Prov:KATLIN GARCIA PA-C 07/22/18 Xwcclbsmvc-Makcrcinwpexo-Mdbfizmo* (Fioricet*) 50-300-40 Mg Capsule, 1 CAP PO Q4H PRN for HEADACHE, #20 CAP Prov:KATLIN GARCIA PA-C 07/22/18 Acetamin/Butalbital/Caffeine* (Fioricet*) [id number] Tab, 1 TAB PO Q6H PRN for PAIN, #30 TAB Prov:KATLIN GARCIA PA-C 04/02/18 Diphenhydramine Hcl* (Benadryl*) 25 Mg Cap, 25 MG PO Q6 PRN for ITCHING/RASH, #30 TAB Prov:YOLANDA BEDOYA 03/14/18 Metoclopramide* (Reglan*) 10 Mg Tablet, 10 MG PO Q6 PRN for NAUSEA AND/OR VOMITING, #20 TAB Prov:YOLANDA BEDOYA F 03/14/18 Acetamin/Butalbital/Caffeine* (Fioricet*) [id number] Tab, 1 TAB PO Q6H PRN for PAIN, #30 TAB Prov:YOLANDA BEDOYA 03/14/18 Guaifenesin* (Robitussin*) 100 Mg/5 Ml Syrup, 200 MG PO Q6H PRN for COUGH, #120 ML Prov:PREETI MIMS FITTER WELDER 02/10/18 Sodium Chloride (Saline Nasal Mist) 126 Ml Mist, 2 SPRAY NASAL Q2H PRN for NASAL CONGESTION, #1 BOTTLE Prov:PREETI MIMS NP 02/10/18 Acetamin/Butalbital/Caffeine* (Fioricet*) [id number] Tab, 1 TAB PO Q4H PRN for PAIN LEVEL 1-5, #30 TAB Prov:PREETI MIMS NP 02/10/18 Metoclopramide* (Reglan*) 10 Mg Tablet, 10 MG PO BID PRN for NAUSEA AND/OR VOMITING, #10 TAB Prov:CRISTA OLMEDO MD 12/27/17 Acetamin/Butalbital/Caffeine* (Fioricet*) [id number] Tab, 1 TAB PO Q6H PRN for PAIN, #30 TAB Prov:CRISTA OLMEDO MD 12/27/17 Ibuprofen* (Motrin*) 600 Mg Tab, 600 MG PO Q6, #30 TAB Prov:CHARLINE BOWENS PA-C 10/09/17 Cephalexin* (Keflex*) 500 Mg Capsule, 500 MG PO QID for 5 Days, CAP Prov:CHARLINE BOWENS PA-C 10/09/17 Cyclobenzaprine Hcl* (Cyclobenzaprine Hcl*) 10 Mg Tablet, 10 MG PO TID, #15 TAB Prov:CHARLINE BOWENS PA-C 10/09/17 Naproxen* (Naprosyn*) 500 Mg Tablet, 500 MG PO BID PRN for PAIN AND/OR INFLAMMATION, #30 TAB Prov:CHARLINE BOWENS PA-C 10/09/17 Ondansetron Hcl* (Zofran*) 4 Mg Tablet, 4 MG PO Q8H PRN for NAUSEA AND/OR VOMITING, #30 TAB Prov:CRISTA OLMEDO MD 08/21/17 Acetamin/Butalbital/Caffeine* (Fioricet*) [id number] Tab, 1 TAB PO Q6H PRN for PAIN, #30 TAB Prov:CRISTA OLMEDO MD 08/21/17 Acetamin/Butalbital/Caffeine* (Fioricet*) [id number] Tab, 1 TAB PO Q6H PRN for PAIN, #30 TAB Prov:ROD HOWELL PA-C 07/14/17 Ondansetron Hcl* (Zofran*) 4 Mg Tablet, 4 MG PO Q8H PRN for NAUSEA AND/OR VOMITING, #30 TAB Prov:CRISTA OLMEDO MD 05/29/17 Acetamin/Butalbital/Caffeine* (Fioricet*) [id number] Tab, 1 TAB PO Q6H PRN for PAIN, #30 TAB Prov:CRISTA OLMEDO MD 05/29/17 Fluticasone Propionate (Flonase Allergy Relief) 9.9 Ml [place].susp, 2 SPRAY NASAL DAILY, #1 BOTTLE TO EACH NOSTRIL Prov:HAILEY HALL PA-C 04/25/17 Guaifenesin-Dextromethorphan* (Robitussin* DM) 100MG/10MG/5ML Syrup, 10 ML PO Q6H PRN for COUGH for 5 Days, ML Prov:HAILEY HALL PA-C 04/25/17 Cetirizine Hcl* (Zyrtec*) 10 Mg Capsule, 10 MG PO DAILY, #14 TAB.CHEW Prov:HAILEY HALL PA-C 04/25/17 Albuterol Sulfate* (Ventolin HFA*) 18 Gm Hfa.aer.ad, 2 PUFF INHALATION Q4H, #1 INHALER Prov:HAILEY HALL PA-C 04/25/17 Acetaminophen* (Tylophen*) 500 Mg Capsule, 1 CAP PO Q6H PRN for PAIN AND OR ELEVATED TEMP, #30 CAP Prov:HAILEY HALL PA-C 04/25/17 Ibuprofen* (Motrin*) 600 Mg Tab, 600 MG PO Q6, #30 TAB Prov:HAILEY HALL PA-C 04/25/17 Acetamin/Butalbital/Caffeine* (Fioricet*) [id number] Tab, 1 TAB PO Q6H PRN for PAIN, #20 TAB Prov:YOLANDA BEDOYA F 04/08/17 Metoclopramide* (Reglan*) 10 Mg Tablet, 10 MG PO Q6 PRN for NAUSEA AND/OR VOMITING, #10 TAB Prov:YOLANDA BEDOYA F 04/08/17 Diphenhydramine Hcl* (Benadryl*) 25 Mg Cap, 25 MG PO Q6, #30 CAP Prov:YOLANDA BEDOYA F 04/08/17 Acetamin/Butalbital/Caffeine* (Fioricet*) [id number] Tab, 1 TAB PO Q6H PRN for PAIN, #30 TAB Prov:KATLIN GARCIA PA-C 12/09/16 Ondansetron (Ondansetron Odt) 4 Mg Tab.rapdis, 4 MG PO Q6H PRN for NAUSEA AND/OR VOMITING, #20 TAB Prov:JANKI ANDRADE PA-C 09/02/16 Acetamin/Butalbital/Caffeine* (Fioricet*) [id number] Tab, 1 TAB PO Q6H PRN for PAIN, #30 TAB Prov:JANKI ANDRADE PA-C 09/02/16 Acetamin/Butalbital/Caffeine* (Fioricet*) [id number] Tab, 1 TAB PO Q6H PRN for PAIN, #15 TAB Prov:BROOKE REED 06/06/16 Ondansetron Hcl* (Zofran*) 4 Mg Tablet, 4 MG PO Q6H for NAUSEA AND/OR VOMITING, #9 TAB Prov:BENNY MAHMOOD, FITTER WELDER 04/03/16 Acetamin/Butalbital/Caffeine* (Fioricet*) [id number] Tab, 1 TAB PO Q6H PRN for PAIN, #15 TAB Prov:BENNY MAHMOOD, FITTER WELDER 04/03/16 Acetamin/Butalbital/Caffeine* (Fioricet*) [id number] Tab, 1 TAB PO Q6H PRN for PAIN, #30 TAB Prov:RUIBA POLANCO PA-C 03/13/16 Ondansetron (Ondansetron Odt) 4 Mg Tab.rapdis, 4 MG PO Q6H PRN for NAUSEA AND/OR VOMITING, #10 TAB Prov:NOA GIBSON DO 12/17/15 Naproxen* (Naprosyn*) 500 Mg Tablet, 500 MG PO BID PRN for PAIN AND/OR INFLAMMATION, #10 TAB Prov:NOA GIBSON DO 12/17/15 Acetamin/Butalbital/Caffeine* (Fioricet*) 1 Tab Tab, 1 TAB PO Q4H PRN for PAIN LEVEL 1-5, #15 TAB Prov:RUBIA POLANCO PA-C 11/27/15 Sumatriptan Succinate* (Imitrex*) 50 Mg Tablet, 50 MG PO BID PRN for MIGRAINE HEADACHE, #30 TAB May repeat after 2 hours if needed; MAX 200 mg/24 hours Prov:RUBIA POLANCO PA-C 11/27/15 Hydrocodone Bit-Acetaminophen* ([place]*) 5-325 Mg Tab, 1 TAB PO Q6 PRN for PAIN, #16 TAB Prov:AMANDEEP RIVERA MD 10/19/15 Ondansetron Hcl* (Zofran* ODT) 8 mg -ODT Tab.disper, 8 MG PO Q6 PRN for NAUSEA AND/OR VOMITING, #10 TAB Prov:AMANDEEP RIVERA MD 10/19/15 Hydrocodone Bit-Acetaminophen* ([place]*) 5-325 Mg Tab, 1 TAB PO Q6 PRN for PAIN, #16 TAB Prov:AMANDEEP RIVERA MD 05/30/15 Prochlorperazine* (Prochlorperazine*) 10 Mg Tablet, 10 MG PO Q6 PRN for NAUSEA AND/OR VOMITING, #10 TAB Prov:ELSY ARREAGASTAMBROSIO Del Toro DO 04/24/15 Ibuprofen* (Motrin*) 800 Mg Tab, 800 MG PO Q6H PRN for PAIN AND OR ELEVATED TEMP, #30 TAB Prov:ELSY ARREAGASTOLOS A. DO 04/24/15 Hydrocodone Bit-Acetaminophen* ([place]*) 7.5-325 Tablet, 2 TAB PO Q4H PRN for PAIN, #30 TAB Prov:KALANI ARREAGA DO 04/24/15 Acetamin/Butalbital/Caffeine* (Fioricet*) 1 Tab Tab, 1 TAB PO Q4H PRN for PAIN LEVEL 1-5, #30 TAB Prov:RUBIA POLANCO PA-C 02/12/15 Ondansetron Hcl* (Zofran*) 4 Mg Tablet, 4 MG PO Q8, #20 TAB Prov:TREMAINE GARNICA 01/18/15 Xumosyivvmvdd-Secrildupq-Tgbxygry-Codeine* (Fioricet w/ Codeine*) [id number] Capsule, 1 CAP PO Q6H PRN for PAIN LEVEL 1-5, #20 CAP Prov:TREMAINE GARNICA 01/18/15 Ondansetron Hcl* (Zofran* ODT) 8 mg -ODT Tab.disper, 8 MG PO Q6H PRN for NAUSEA AND OR VOMITING, #20 TAB Prov:JANKI ANDRADE PA-C 12/26/14 Snfuyucsqiwzt-Gphnlpuxxa-Ytzndpub-Codeine* (Fioricet w/Codeine*) [id number] Cap, 1 CAP PO Q4H PRN for PAIN LEVEL 1-5, #20 CAP Prov:JANKI ANDRADE PA-C 12/26/14 Amoxicillin-Clavulanate K* (Augmentin*) 875 Mg Tab, 875 MG PO BID for 7 Days, TAB Prov:REVA MA M. 11/01/14 Acetaminophen-Codeine* (Acetaminophen-Cod #3*) 300-30 Mg Tab, 1 TAB PO Q6 PRN for PAIN, #10 TAB Prov:DANITZA MAT M. 11/01/14 Wnxkpkbgogqgr-Gbscufydir-Clyfmzjk-Codeine* (Fioricet w/ Codeine*) [id number] Capsule, 1 CAP PO Q6H PRN for PAIN LEVEL 1-5, #8 CAP Prov:JANKI ANDRADE PA-C 09/22/14 Ondansetron Hcl* (Zofran* ODT) 8 mg -ODT Tab.disper, 8 MG PO Q6 PRN for NAUSEA AND/OR VOMITING, #20 TAB Prov:JANKI ANDRADE PA-C 09/22/14 Allergies Allergies: Coded Allergies: No Known Allergy (Unverified , 07/22/18) PMhx/Soc History of Surgery: Yes (tubal ligation, appendectomy) Anesthesia Reaction: No Hx Neurological Disorder: Yes (Migraine HAs) Hx Respiratory Disorders: No Hx Cardiac Disorders: Yes (HTN) Hx Psychiatric Problems: No Hx Miscellaneous Medical Probl: Yes (migraine headache) Hx Alcohol Use: No Hx Substance Use: No Hx Tobacco Use: No Smoking Status: Never smoker FmHx Family History: No diabetes, No coronary disease Physical Exam Vitals Vital Signs Date Temp Pulse Resp B/P (MAP) Pulse Ox O2 O2 Flow FiO2 Time Delivery Rate 07/22/18 75 18 118/59 99 Room Air 16:34 (78) 07/22/18 98.4 84 20 103/65 99 13:51 (78) Physical Exam Const: Ikf-ffz-skzuquxjj, well-nourished. In no acute distress. Head: Atraumatic, normocephalic Eyes: Normal Conjunctiva without injection. No purulent discharge. PERRLA. EOMI ENT: Normal external ear. Ear canal without erythema. Tympanic membrane pearly finn without effusion or bulging. Nasal canal clear with normal turbinates. Moist oropharynx without tonsillar exudates. Non-erythematous pharynx. Uvula midline. No drooling. No trismus. Neck: No cervical midline tenderness. Full range of motion. No meningismus. No cervical lymphadenopathy. No JVD. Resp: Clear to auscultation bilaterally. No wheezing, rhonchi, rales, or crackles. No accessory muscle use. No retractions. Cardio: Regular rate and rhythm. No murmurs, rubs or gallops. Abd: Soft, non tender, non distended. Normal bowel sounds. No palpable masses. No rebound tenderness. No guarding. Negative McBurney's Point. Negative Jorge's Sign. Skin: Normal skin turgor. No petechiae or rashes Back: No midline tenderness. No CVA tenderness. Ext: No cyanosis, or edema. Distal pulses intact bilaterally. Neur: Awake and alert. Normal gait. Normal coordination. Cranial Nerves II- VII intact. Normal finger to nose. Muscle strength 5/5. Sensation intact. Psych: Normal Mood and Affect Procedures/MDM 57-year-old female patient with a past medical history of migraines presents the ED for a medication refill. Patient is afebrile and nontoxic-appearing. I will refill patient's Fioricet and also prescribe patient Zofran for nausea. Patient is neurologically intact. She states that this feels exactly like her migraines. Low suspicion for intracranial bleed, subarachnoid hemorrhage, meningitis, TIA, stroke, subdural hematoma, seizures, carotid dissection, epidural hematoma, or other emergent conditions. Diagnosis: Encounter for medication refill Discharge medications: Fioricet, Zofran Follow up with primary care physician in 1-2 days. Instructed patient to return to the ED sooner for any worsening symptoms. Patient's questions were answered. Patient is hemodynamically stable. Patient understood and agreed with discharge plan. Patient discharged stable. Disclaimer: Inadvertent spelling and grammatical errors are likely due to EHR/dictation software use and do not reflect on the overall quality of patient care. Also, please note that the electronic time recorded on this note does not necessarily reflect the actual time of the patient encounter. Departure Diagnosis: Primary Impression: Encounter for medication refill Condition: Stable Patient Instructions: Taking Medicine Safely, Preventing Migraine Headaches: Triggers Referrals: COMMUNITY CLINICS YOU HAVE RECEIVED A MEDICAL SCREENING EXAM AND THE RESULTS INDICATE THAT YOU DO NOT HAVE A CONDITION THAT REQUIRES URGENT TREATMENT IN THE EMERGENCY DEPARTMENT. FURTHER EVALUATION AND TREATMENT OF YOUR CONDITION CAN WAIT UNTIL YOU ARE SEEN IN YOUR DOCTORS OFFICE WITHIN THE NEXT 1-2 DAYS. IT IS YOUR RESPONSIBILITY TO MAKE AN APPOINTMENT FOR FOLOW-UP CARE. IF YOU HAVE A PRIMARY DOCTOR --you should call your primary doctor and schedule an appointment IF YOU DO NOT HAVE A PRIMARY DOCTOR YOU CAN CALL OUR PHYSICIAN REFERRAL HOTLINE AT IF YOU CAN NOT AFFORD TO SEE A PHYSICIAN YOU CAN CHOSE FROM THE FOLLOWING FORMERLY [facility], [facility] CLINICS [facility] [address] [facility] [address] [place] [address] [facility] [address] [facility] [address] [facility]. [facility] [address] [facility]. [facility] YOU HAVE RECEIVED A MEDICAL SCREENING EXAM AND THE RESULTS INDICATE THAT YOU DO NOT HAVE A CONDITION THAT REQUIRES URGENT TREATMENT IN THE EMERGENCY DEPARTMENT. FURTHER EVALUATION AND TREATMENT OF YOUR CONDITION CAN WAIT UNTIL YOU ARE SEEN IN YOUR DOCTORS OFFICE WITHIN THE NEXT 1-2 DAYS. IT IS YOUR RESPONSIBILITY TO MAKE AN APPOINTMENT FOR FOLOW-UP CARE. IF YOU HAVE A PRIMARY DOCTOR --you should call your primary doctor and schedule and appointment IF YOU DO NOT HAVE A PRIMARY DOCTOR YOU CAN CALL OUR PHYSICIAN REFERRAL HOTLINE AT . IF YOU CAN NOT AFFORD TO SEE A PHYSICIAN YOU CAN CHOSE FROM THE FOLLOWING [facility] INSTITUTIONS: [facility] [address] [place] [address] [facility] [address] [place], [place] [id number] [place] [address] [address] [place] [address] [facility] URGENT CARE/SPECIALTIES Additional Instructions: Llame al doctor MAANA y gallito nickie STEVEN PARA DENTRO DE 2-3 FRANCISCO.Dgale a la secretaria que nosotros le instruimos hacer esta steven.Avise o llame si kamara con dicin se empeora antes de la steven. Regresa aqui si peor o no mejor. KATLIN GARCIA PA-C Jul 22, 2018 16:45
== END 2018-07-22 16:42 | disposition home or self-care (01) ==
LOC: FTE 13:37
DX: R11.0 Nausea (principal); I10 Essential (primary) hypertension
CPT/HCPCS: 99283

== ENCOUNTER 2018-09-19 14:03 | Emergency (ER) | payer OTHER ==
[~2018-09-19] VITALS: Ht 157.5 cm; Wt 80.0 kg
[~2018-09-19 14:03] MED LIST changes: +BUTA1CAP38 PO
[2018-09-19 14:07] VITALS: BP 120/60; PULSE 60; RESP 18; Ht 157.5 cm; Wt 80.0 kg
[2018-09-19] MEDS ORDERED: ONDANSETRON (ODT) 4 MG TAB ODT STA (15:40)
[2018-09-19] MEDS ORDERED: PRED20TA PO (16:04)
[2018-09-19] MEDS ORDERED: ONDA4TAB14 PO (16:04)
[2018-09-19] MEDS ORDERED: BUTA1CAP38 PO (16:04)
--- NOTE | 2018-09-19 16:39 | ERD ---
ER Documentation Chief Complaint Chief Complaint HX MIGRANE, HAS MARROQUIN, ALSO REFILL OF MEDS HPI History of Present Illness: 57-year-old female who denies a past medical history coming in today with complaint of headache. Patient reports history of migraines. Patient reports headaches appears to be similar to her migraines in the past. Patient reports recent having an aura yesterday before migraine started. Associated symptoms include photophobia, nausea, vomiting x3 in the past 24 hours. Denies paralysis, numbness, tingling At home pharmacological/nonpharmacological treatment for symptoms: Denies Denies social concerns; Denies recent foreign travel ROS All systems reviewed and are negative except as per history of present illness. Medications Home Meds Active Scripts Prednisone* (Prednisone*) 20 Mg Tab, 40 MG PO DAILY for MIGRAINE FLAREUP for 5 Days, TAB Prov:ANDER MCGINNIS NP 09/19/18 Ondansetron (Ondansetron Odt) 4 Mg Tab.rapdis, 4 MG PO Q6H PRN for NAUSEA AND/OR VOMITING, #20 TAB Prov:ANDER MCGINNIS NP 09/19/18 Pesvwwmdqa-Bgjgsllhzrygf-Yjpszadi* (Fioricet*) 50-300-40 Mg Capsule, 1 CAP PO Q4H PRN for HEADACHE, #30 CAP Prov:ANDER MCGINNIS NP 09/19/18 Ondansetron (Ondansetron Odt) 4 Mg Tab.rapdis, 4 MG PO Q6H PRN for NAUSEA AND/OR VOMITING, #10 TAB Prov:KATLIN GARCIA PA-C 07/22/18 Uskceqopom-Phfzupcwufvoy-Qfkgtscd* (Fioricet*) 50-300-40 Mg Capsule, 1 CAP PO Q4H PRN for HEADACHE, #20 CAP Prov:KATLIN GARCIA PA-C 07/22/18 Acetamin/Butalbital/Caffeine* (Fioricet*) [id number] Tab, 1 TAB PO Q6H PRN for PAIN, #30 TAB Prov:KATLIN GARCIA PA-C 04/02/18 Diphenhydramine Hcl* (Benadryl*) 25 Mg Cap, 25 MG PO Q6 PRN for ITCHING/RASH, #3 0 TAB Prov:YOLANDA BEDOYA 03/14/18 Metoclopramide* (Reglan*) 10 Mg Tablet, 10 MG PO Q6 PRN for NAUSEA AND/OR VOMITING, #20 TAB Prov:YOLANDA BEDOYA 03/14/18 Acetamin/Butalbital/Caffeine* (Fioricet*) [id number] Tab, 1 TAB PO Q6H PRN for PAIN, #30 TAB Prov:YOLANDA BEDOYA 03/14/18 Guaifenesin* (Robitussin*) 100 Mg/5 Ml Syrup, 200 MG PO Q6H PRN for COUGH, #120 ML Prov:PREETI MIMS COOK SEAFOOD 02/10/18 Sodium Chloride (Saline Nasal Mist) 126 Ml Mist, 2 SPRAY NASAL Q2H PRN for NASAL CONGESTION, #1 BOTTLE Prov:PREETI MIMS NP 02/10/18 Acetamin/Butalbital/Caffeine* (Fioricet*) [id number] Tab, 1 TAB PO Q4H PRN for PAIN LEVEL 1-5, #30 TAB Prov:PREETI MIMS NP 02/10/18 Metoclopramide* (Reglan*) 10 Mg Tablet, 10 MG PO BID PRN for NAUSEA AND/OR V OMITING, #10 TAB Prov:CRISTA OLMEDO MD 12/27/17 Acetamin/Butalbital/Caffeine* (Fioricet*) [id number] Tab, 1 TAB PO Q6H PRN for PAIN, #30 TAB Prov:CRISTA OLMEDO MD 12/27/17 Ibuprofen* (Motrin*) 600 Mg Tab, 600 MG PO Q6, #30 TAB Prov:CHARLINE BOWENS PA-C 10/09/17 Cephalexin* (Keflex*) 500 Mg Capsule, 500 MG PO QID for 5 Days, CAP Prov:CHARLINE BOWENS PA-C 10/09/17 Cyclobenzaprine Hcl* (Cyclobenzaprine Hcl*) 10 Mg Tablet, 10 MG PO TID, #15 TAB Prov:CHARLINE BOWENS PA-C 10/09/17 Naproxen* (Naprosyn*) 500 Mg Tablet, 500 MG PO BID PRN for PAIN AND/OR INFLAMMATION, #30 TAB Prov:CHARLINE BOWENS PA-C 10/09/17 Ondansetron Hcl* (Zofran*) 4 Mg Tablet, 4 MG PO Q8H PRN for NAUSEA AND/OR VOMITING, #30 TAB Prov:CRISTA OLMEDO MD 08/21/17 Acetamin/Butalbital/Caffeine* (Fioricet*) [id number] Tab, 1 TAB PO Q6H PRN for PAIN, #30 TAB Prov:CRISTA OLMEDO MD 08/21/17 Acetamin/Butalbital/Caffeine* (Fioricet*) [id number] Tab, 1 TAB PO Q6H PRN for PAIN, #30 TAB Prov:ROD HOWELL PA-C 07/14/17 Ondansetron Hcl* (Zofran*) 4 Mg Tablet, 4 MG PO Q8H PRN for NAUSEA AND/OR VOMITING, #30 TAB Prov:CRISTA OLMEDO MD 05/29/17 Acetamin/Butalbital/Caffeine* (Fioricet*) [id number] Tab, 1 TAB PO Q6H PRN for PAIN, #30 TAB Prov:CRISTA OLMEDO MD 05/29/17 Fluticasone Propionate (Flonase Allergy Relief) 9.9 Ml [place].susp, 2 SPRAY NASAL DAILY, #1 BOTTLE TO EACH NOSTRIL Prov:HAILEY HALL PA-C 04/25/17 Guaifenesin-Dextromethorphan* (Robitussin* DM) 100MG/10MG/5ML Syrup, 10 ML PO Q6H PRN for COUGH for 5 Days, ML Prov:HAILEY HALL PA-C 04/25/17 Cetirizine Hcl* (Zyrtec*) 10 Mg Capsule, 10 MG PO DAILY, #14 TAB.CHEW Prov:HAILEY HALL PA-C 04/25/17 Albuterol Sulfate* (Ventolin HFA*) 18 Gm Hfa.aer.ad, 2 PUFF INHALATION Q4H, #1 INHALER Prov:HAILEY HALL PA-C 04/25/17 Acetaminophen* (Tylophen*) 500 Mg Capsule, 1 CAP PO Q6H PRN for PAIN AND OR ELEVATED TEMP, #30 CAP Prov:HAILEY HALL PA-C 04/25/17 Ibuprofen* (Motrin*) 600 Mg Tab, 600 MG PO Q6, #30 TAB Prov:HAILEY HALL PA-C 04/25/17 Acetamin/Butalbital/Caffeine* (Fioricet*) [id number] Tab, 1 TAB PO Q6H PRN for PAIN, #20 TAB Prov:PASILABANDARLINGAR F 04/08/17 Metoclopramide* (Reglan*) 10 Mg Tablet, 10 MG PO Q6 PRN for NAUSEA AND/OR VOMITING, #10 TAB Prov:PASILABANDARLINGAR F 04/08/17 Diphenhydramine Hcl* (Benadryl*) 25 Mg Cap, 25 MG PO Q6, #30 CAP Prov:PASILAYOLANDA NORRIS F 04/08/17 Acetamin/Butalbital/Caffeine* (Fioricet*) [id number] Tab, 1 TAB PO Q6H PRN for PAIN, #30 TAB Prov:KATLIN GARCIA PA-C 12/09/16 Ondansetron (Ondansetron Odt) 4 Mg Tab.rapdis, 4 MG PO Q6H PRN for NAUSEA AND/OR VOMITING, #20 TAB Prov:JANKI ANDRADE PA-C 09/02/16 Acetamin/Butalbital/Caffeine* (Fioricet*) [id number] Tab, 1 TAB PO Q6H PRN for PAIN, #30 TAB Prov:JANKI ANDRADE PA-C 09/02/16 Acetamin/Butalbital/Caffeine* (Fioricet*) [id number] Tab, 1 TAB PO Q6H PRN for PAIN, #15 TAB Prov:BROOKE REED 06/06/16 Ondansetron Hcl* (Zofran*) 4 Mg Tablet, 4 MG PO Q6H for NAUSEA AND/OR VOMITING, #9 TAB Prov:BENNY MAHMOOD, JOSE ROBERTO 04/03/16 Acetamin/Butalbital/Caffeine* (Fioricet*) [id number] Tab, 1 TAB PO Q6H PRN for PAIN, #15 TAB Prov:BENNY MAHMOOD, COOK SEAFOOD 04/03/16 Acetamin/Butalbital/Caffeine* (Fioricet*) [id number] Tab, 1 TAB PO Q6H PRN for PAIN, #30 TAB Prov:RUBIA POLANCO PA-C 03/13/16 Ondansetron (Ondansetron Odt) 4 Mg Tab.rapdis, 4 MG PO Q6H PRN for NAUSEA AND/OR VOMITING, #10 TAB Prov:NOA GIBSON DO 12/17/15 Naproxen* (Naprosyn*) 500 Mg Tablet, 500 MG PO BID PRN for PAIN AND/OR INFLAMMATION, #10 TAB Prov:PAIGE,NOA DO 12/17/15 Acetamin/Butalbital/Caffeine* (Fioricet*) 1 Tab Tab, 1 TAB PO Q4H PRN for PAIN LEVEL 1-5, #15 TAB Prov:RUBIA POLANCO PA-C 11/27/15 Sumatriptan Succinate* (Imitrex*) 50 Mg Tablet, 50 MG PO BID PRN for MIGRAINE HEADACHE, #30 TAB May repeat after 2 hours if needed; MAX 200 mg/24 hours Prov:RUBIA POLANCO PA-C 11/27/15 Hydrocodone Bit-Acetaminophen* (Milner*) 5-325 Mg Tab, 1 TAB PO Q6 PRN for PAIN, #16 TAB Prov:AMANDEEP RIVERA MD 10/19/15 Ondansetron Hcl* (Zofran* ODT) 8 mg -ODT Tab.disper, 8 MG PO Q6 PRN for NAUSEA AND/OR VOMITING, #10 TAB Prov:AMANDEEP RIVERA MD 10/19/15 Hydrocodone Bit-Acetaminophen* (Milner*) 5-325 Mg Tab, 1 TAB PO Q6 PRN for PAIN, #16 TAB Prov:AMANDEEP RIVERA MD 05/30/15 Prochlorperazine* (Prochlorperazine*) 10 Mg Tablet, 10 MG PO Q6 PRN for NAUSEA AND/OR VOMITING, #10 TAB Prov:KALANI ARREAGA. DO 04/24/15 Ibuprofen* (Motrin*) 800 Mg Tab, 800 MG PO Q6H PRN for PAIN AND OR ELEVATED TEMP, #30 TAB Prov:KALANI ARREAGA. DO 04/24/15 Hydrocodone Bit-Acetaminophen* (Milner*) 7.5-325 Tablet, 2 TAB PO Q4H PRN for PAIN, #30 TAB Prov:KALANI ARREAGA. DO 04/24/15 Acetamin/Butalbital/Caffeine* (Fioricet*) 1 Tab Tab, 1 TAB PO Q4H PRN for PAIN LEVEL 1-5, #30 TAB Prov:RUBIA POLANCO PA-C 02/12/15 Ondansetron Hcl* (Zofran*) 4 Mg Tablet, 4 MG PO Q8, #20 TAB Prov:TREMAINE GARNICA 01/18/15 Wrtrvirfpwtto-Binfmnqdno-Rusiqlvq-Codeine* (Fioricet w/ Codeine*) [id number] Capsule, 1 CAP PO Q6H PRN for PAIN LEVEL 1-5, #20 CAP Prov:TREMAINE GARNICA 01/18/15 Ondansetron Hcl* (Zofran* ODT) 8 mg -ODT Tab.disper, 8 MG PO Q6H PRN for NAUSEA AND OR VOMITING, #20 TAB Prov:JANKI ANDRADE PA-C 12/26/14 Hwbzgqsovkqmh-Lgonpnrgsf-Iekmovhj-Codeine* (Fioricet w/Codeine*) [id number] Cap, 1 CAP PO Q4H PRN for PAIN LEVEL 1-5, #20 CAP Prov:JANKI ANDRADE PA-C 12/26/14 Amoxicillin-Clavulanate K* (Augmentin*) 875 Mg Tab, 875 MG PO BID for 7 Days, TAB Prov:REVA MA 11/01/14 Acetaminophen-Codeine* (Acetaminophen-Cod #3*) 300-30 Mg Tab, 1 TAB PO Q6 PRN for PAIN, #10 TAB Prov:REVA MA. 11/01/14 Zvskuttvccyqq-Aospnpcmzw-Ngzzupjs-Codeine* (Fioricet w/ Codeine*) [id number] Capsule, 1 CAP PO Q6H PRN for PAIN LEVEL 1-5, #8 CAP Prov:JANKI ANDRADE PA-C 09/22/14 Ondansetron Hcl* (Zofran* ODT) 8 mg -ODT Tab.disper, 8 MG PO Q6 PRN for NAUSEA AND/OR VOMITING, #20 TAB Prov:JANKI ANDRADE PA-C 09/22/14 Allergies Allergies: Coded Allergies: No Known Allergy (Unverified , 07/22/18) PMhx/Soc History of Surgery: Yes (tubal ligation, appendectomy) Anesthesia Reaction: No Hx Neurological Disorder: Yes (Migraine HAs) Hx Respiratory Disorders: No Hx Cardiac Disorders: Yes (HTN) Hx Psychiatric Problems: No Hx Miscellaneous Medical Probl: Yes (migraine headache) Hx Alcohol Use: No Hx Substance Use: No Hx Tobacco Use: Yes Smoking Status: Current every day smoker FmHx Family History: coronary disease Physical Exam Vitals Vital Signs Date Temp Pulse Resp B/P (MAP) Pulse Ox O2 O2 Flow FiO2 Time Delivery Rate 09/19/18 98.1 60 18 120/60 99 14:07 (80) Physical Exam Const: No acute distress, afebrile, patient wearing sunglasses Head: Atraumatic Eyes: Normal Conjunctiva ENT: Normal External Ears, Nose and Mouth. Neck: Full range of motion. No meningismus. Resp: Clear to auscultation bilaterally Cardio: Regular rate and rhythm, no murmurs Abd: Soft, non tender, non distended. No guarding, no masses, no rigidity Skin: No petechiae or rashes Back: No midline or flank tenderness Ext: No cyanosis, or edema Neur: Awake and alert x3, speaking in clear sentences, no focal deficits or facial asymmetry Psych: Normal Mood and Affect Results 24 hrs Current Medications Medications Dose Sig/[place] Start Time Status Last (Trade) Ordered Route PRN Stop Time Admin Dose Reason Admin Ondansetron 4 mg ONCE STAT 09/19/18 DC 09/19/18 HCl (Zofran ODT 15:40 15:56 Odt) 09/19/18 15:42 Procedures/MDM ED COURSE: ED course includes a thorough examination and history. The patient was stable throughout ED course. I kept the patient and/or family informed of laboratory and diagnostic imaging results throughout the ED course. MEDICATIONS GIVEN IN ER: Zofran Patient tolerated medication well with no adverse reactions. Patient reported improvement in pain. Patient refused any type of injections or IV therapy for migraine; patient requesting prescriptions only. MEDICAL DECISION MAKING: Low suspicion for life-threatening medical emergency. Low suspicion for neurological emergency Otherwise healthy patient presenting with constellation of symptoms likely repr esenting encounter for medication refill/migraine as characterized by history, physical exam findings. Patient reassessment @ 1620: Patient medicated as ordered. Patient hemodynamically stable. No respiratory distress, otherwise relatively well appearing and nontoxic. Disposition given. Patient educated on diagnoses, prescriptions, follow-up care, return precautions. Strict return precautions given for worsening condition; questions answered discharge. Patient verbalizes understanding of discharge instructions. PRESCRIPTIONS FOR HOME: Fioricet. Zofran. DISPOSITION: DISCHARGE At this time, patient is stable for discharge and outpatient management. I have instructed the patient to follow-up with his/her primary care physician in 1-2 days. I have discussed with the patient the possibility of needing to see a specialist for further workup and imaging studies if symptoms persist. I have instructed the patient to promptly return to the ER for any new or worsening symptoms including increased pain, fever, nausea, vomiting, weakness or LOC. The patient and/or family expressed understanding of and agreement with this plan. All questions were answered. Home care instructions were provided. DISCLAIMER: Inadvertent spelling and grammatical errors are likely due to EHR/dictation software use and do not reflect on the overall quality of patient care. Also, please note that the electronic time recorded on this note does not necessarily reflect the actual time of the patient encounter. Departure Diagnosis: Primary Impression: Migraine Migraine type: with aura Status migrainosus presence: without status migrainosus Intractability: not intractable Qualified Codes: G43.109 - Migraine with aura, not intractable, without status migrainosus Additional Impression: Encounter for medication refill Condition: Stable Patient Instructions: Migraines and Cluster Headaches, Migraine Headache: Stages and Treatment Referrals: COMMUNITY CLINICS YOU HAVE RECEIVED A MEDICAL SCREENING EXAM AND THE RESULTS INDICATE THAT YOU DO NOT HAVE A CONDITION THAT REQUIRES URGENT TREATMENT IN THE EMERGENCY DEPARTMENT. FURTHER EVALUATION AND TREATMENT OF YOUR CONDITION CAN WAIT UNTIL YOU ARE SEEN IN YOUR DOCTORS OFFICE WITHIN THE NEXT 1-2 DAYS. IT IS YOUR RESPONSIBILITY TO MAKE AN APPOINTMENT FOR FOLOW-UP CARE. IF YOU HAVE A PRIMARY DOCTOR --you should call your primary doctor and schedule an appointment IF YOU DO NOT HAVE A PRIMARY DOCTOR YOU CAN CALL OUR PHYSICIAN REFERRAL HOTLINE AT IF YOU CAN NOT AFFORD TO SEE A PHYSICIAN YOU CAN CHOSE FROM THE FOLLOWING [facility] [address] [facility] [address] [facility] [address] [facility] [address] [facility] [address] [facility]. [facility] [address] [facility] YOU HAVE RECEIVED A MEDICAL SCREENING EXAM AND THE RESULTS INDICATE THAT YOU DO NOT HAVE A CONDITION THAT REQUIRES URGENT TREATMENT IN THE EMERGENCY DEPARTMENT. FURTHER EVALUATION AND TREATMENT OF YOUR CONDITION CAN WAIT UNTIL YOU ARE SEEN IN YOUR DOCTORS OFFICE WITHIN THE NEXT 1-2 DAYS. IT IS YOUR RESPONSIBILITY TO MAKE AN APPOINTMENT FOR FOLOW-UP CARE. IF YOU HAVE A PRIMARY DOCTOR --you should call your primary doctor and schedule and appointment IF YOU DO NOT HAVE A PRIMARY DOCTOR YOU CAN CALL OUR PHYSICIAN REFERRAL HOTLINE AT . IF YOU CAN NOT AFFORD TO SEE A PHYSICIAN YOU CAN CHOSE FROM THE FOLLOWING [facility]: [facility] [address] [place] [address] [facility] [address] [place] [address] [facility] [address] [place] [address] Additional Instructions: Thank you very much for allowing us to participate in your care. Your health and safety is our top priority at [facility]. It is important to read all discharge instructions and education provided in your discharge packet. Call your primary care doctor TOMORROW for an appointment during the next 2-4 days and bring all the information and medications prescribed. Have prescriptions filled and follow precisely the directions on the label. If the symptoms get worse and your provider is unavailable, return to the Emergency Department immediately. ANDER MCGINNIS NP Sep 19, 2018 16:39
== END 2018-09-19 16:25 | disposition home or self-care (01) ==
LOC: FTE 14:03
DX: G43.109 Migraine with aura, not intractable, without status migrainosus (principal); Z76.0 Encounter for issue of repeat prescription
CPT/HCPCS: Z7502; Z7610; 99283

== ENCOUNTER 2018-11-03 14:55 | Emergency (ER) | payer OTHER ==
[~2018-11-03] VITALS: Ht 160 cm; Wt 59.9 kg
[~2018-11-03 14:55] MED LIST changes: +PRED20TA PO
[2018-11-03 14:57] VITALS: BP 122/72; PULSE 98; RESP 16; Ht 160 cm; Wt 59.9 kg
--- NOTE | 2018-11-03 15:34 | ERD ---
ER Documentation Chief Complaint Chief Complaint Pt reports cox since yesterday, pt out of migraine meds HPI 57-year-old female, presents the emergency department, requesting a refill for migraine medication. The patient denies distal weakness, numbness or tingling. ROS All systems reviewed and are negative except as per history of present illness. Medications Home Meds Active Scripts Ondansetron Hcl* (Zofran*) 4 Mg Tablet, 4 MG PO Q8H PRN for NAUSEA AND/OR VOMITING, #20 TAB Prov:CRISTA OLMEDO MD 11/03/18 Swtvfbwhfz-Xbcgioycbzpdi-Ryyajuci* (Fioricet*) 50-300-40 Mg Capsule, 1 CAP PO TID PRN for HEADACHE, #30 CAP Prov:CRISTA OLMEDO MD 11/03/18 Prednisone* (Prednisone*) 20 Mg Tab, 40 MG PO DAILY for MIGRAINE FLAREUP for 5 Days, TAB Prov:ANDER MCGINNIS V SAFETY COMPANION 09/19/18 Ondansetron (Ondansetron Odt) 4 Mg Tab.rapdis, 4 MG PO Q6H PRN for NAUSEA AND/OR VOMITING, #20 TAB Prov:ANDER MCGINNIS V SAFETY COMPANION 09/19/18 Joqaiehufb-Oogevsckxeeti-Gjzfugtz* (Fioricet*) 50-300-40 Mg Capsule, 1 CAP PO Q4H PRN for HEADACHE, #30 CAP Prov:ANDER MCGINNIS V SAFETY COMPANION 09/19/18 Ondansetron (Ondansetron Odt) 4 Mg Tab.rapdis, 4 MG PO Q6H PRN for NAUSEA AND/OR VOMITING, #10 TAB Prov:KATLIN GARCIA PA-C 07/22/18 Nqnsrawllm-Vflsddxjztsll-Wsokkmnt* (Fioricet*) 50-300-40 Mg Capsule, 1 CAP PO Q 4H PRN for HEADACHE, #20 CAP Prov:KATLIN GARCIA PA-C 07/22/18 Acetamin/Butalbital/Caffeine* (Fioricet*) [id number] Tab, 1 TAB PO Q6H PRN for PAIN, #30 TAB Prov:KATLIN GARCIA PA-C 04/02/18 Diphenhydramine Hcl* (Benadryl*) 25 Mg Cap, 25 MG PO Q6 PRN for ITCHING/RASH, #30 TAB Prov:YOLANDA BEDOYA 03/14/18 Metoclopramide* (Reglan*) 10 Mg Tablet, 10 MG PO Q6 PRN for NAUSEA AND/OR VOMITING, #20 TAB Prov:YOLANDA BEDOYA 03/14/18 Acetamin/Butalbital/Caffeine* (Fioricet*) [id number] Tab, 1 TAB PO Q6H PRN for PAIN, #30 TAB Prov:YOLANDA BEDOYA 03/14/18 Guaifenesin* (Robitussin*) 100 Mg/5 Ml Syrup, 200 MG PO Q6H PRN for COUGH, #120 ML Prov:PREETI MIMS SAFETY COMPANION 02/10/18 Sodium Chloride (Saline Nasal Mist) 126 Ml Mist, 2 SPRAY NASAL Q2H PRN for NASAL CONGESTION, #1 BOTTLE Prov:PREETI MIMS NP 02/10/18 Acetamin/Butalbital/Caffeine* (Fioricet*) [id number] Tab, 1 TAB PO Q4H PRN for PAIN LEVEL 1-5, #30 TAB Prov:PREETI MIMS NP 02/10/18 Metoclopramide* (Reglan*) 10 Mg Tablet, 10 MG PO BID PRN for NAUSEA AND/OR VOMITING, #10 TAB Prov:CRISTA OLMEDO MD 12/27/17 Acetamin/Butalbital/Caffeine* (Fioricet*) [id number] Tab, 1 TAB PO Q6H PRN for PAIN, #30 TAB Prov:CRISTA OLMEDO MD 12/27/17 Ibuprofen* (Motrin*) 600 Mg Tab, 600 MG PO Q6, #30 TAB Prov:CHARLINE BOWENS PA-C 10/09/17 Cephalexin* (Keflex*) 500 Mg Capsule, 500 MG PO QID for 5 Days, CAP Prov:CHARLINE BOWENS PA-C 10/09/17 Cyclobenzaprine Hcl* (Cyclobenzaprine Hcl*) 10 Mg Tablet, 10 MG PO TID, #15 TAB Prov:CHARLINE BOWENS PA-C 10/09/17 Naproxen* (Naprosyn*) 500 Mg Tablet, 500 MG PO BID PRN for PAIN AND/OR INFLAMM ATION, #30 TAB Prov:CHARLINE BOWENS PA-C 10/09/17 Ondansetron Hcl* (Zofran*) 4 Mg Tablet, 4 MG PO Q8H PRN for NAUSEA AND/OR VOMITING, #30 TAB Prov:CRISTA OLMEDO MD 08/21/17 Acetamin/Butalbital/Caffeine* (Fioricet*) [id number] Tab, 1 TAB PO Q6H PRN for PAIN, #30 TAB Prov:CRISTA OLMEDO MD 08/21/17 Acetamin/Butalbital/Caffeine* (Fioricet*) [id number] Tab, 1 TAB PO Q6H PRN for PAIN, #30 TAB Prov:ROD HOWELL PA-C 07/14/17 Ondansetron Hcl* (Zofran*) 4 Mg Tablet, 4 MG PO Q8H PRN for NAUSEA AND/OR VOMITING, #30 TAB Prov:CRISTA OLMEDO MD 05/29/17 Acetamin/Butalbital/Caffeine* (Fioricet*) [id number] Tab, 1 TAB PO Q6H PRN for PAIN, #30 TAB Prov:CRISTA OLMEDO MD 05/29/17 Fluticasone Propionate (Flonase Allergy Relief) 9.9 Ml [place].susp, 2 SPRAY NASAL DAILY, #1 BOTTLE TO EACH NOSTRIL Prov:HAILEY HALL PA-C 04/25/17 Guaifenesin-Dextromethorphan* (Robitussin* DM) 100MG/10MG/5ML Syrup, 10 ML PO Q6H PRN for COUGH for 5 Days, ML Prov:HAILEY HALL PA-C 04/25/17 Cetirizine Hcl* (Zyrtec*) 10 Mg Capsule, 10 MG PO DAILY, #14 TAB.CHEW Prov:HAILEY HALL PA-C 04/25/17 Albuterol Sulfate* (Ventolin HFA*) 18 Gm Hfa.aer.ad, 2 PUFF INHALATION Q4H, #1 INHALER Prov:HAILEY HALL PA-C 04/25/17 Acetaminophen* (Tylophen*) 500 Mg Capsule, 1 CAP PO Q6H PRN for PAIN AND OR ELEVATED TEMP, #30 CAP Prov:HAILEY HALL PA-C 04/25/17 Ibuprofen* (Motrin*) 600 Mg Tab, 600 MG PO Q6, #30 TAB Prov:HAILEY HALL PA-C 04/25/17 Acetamin/Butalbital/Caffeine* (Fioricet*) [id number] Tab, 1 TAB PO Q6H PRN for PAIN, #20 TAB Prov:PASILABANDARLINGAR F 04/08/17 Metoclopramide* (Reglan*) 10 Mg Tablet, 10 MG PO Q6 PRN for NAUSEA AND/OR VOMITING, #10 TAB Prov:PASILAJRDARLINGAR F 04/08/17 Diphenhydramine Hcl* (Benadryl*) 25 Mg Cap, 25 MG PO Q6, #30 CAP Prov:PASILABANDARLINGAR F 04/08/17 Acetamin/Butalbital/Caffeine* (Fioricet*) [id number] Tab, 1 TAB PO Q6H PRN for PAIN, #30 TAB Prov:KATLIN GARCIA PA-C 12/09/16 Ondansetron (Ondansetron Odt) 4 Mg Tab.rapdis, 4 MG PO Q6H PRN for NAUSEA AND/OR VOMITING, #20 TAB Prov:JANKI ANDRADE PA-C 09/02/16 Acetamin/Butalbital/Caffeine* (Fioricet*) [id number] Tab, 1 TAB PO Q6H PRN for PAIN, #30 TAB Prov:JANKI ANDRADE PA-C 09/02/16 Acetamin/Butalbital/Caffeine* (Fioricet*) [id number] Tab, 1 TAB PO Q6H PRN for PAIN, #15 TAB Prov:BROOKE REED 06/06/16 Ondansetron Hcl* (Zofran*) 4 Mg Tablet, 4 MG PO Q6H for NAUSEA AND/OR VOMITING, #9 TAB Prov:BENNY MAHMOOD, SAFETY COMPANION 04/03/16 Acetamin/Butalbital/Caffeine* (Fioricet*) [id number] Tab, 1 TAB PO Q6H PRN for PAIN, #15 TAB Prov:BENNY MAHMOOD, SAFETY COMPANION 04/03/16 Acetamin/Butalbital/Caffeine* (Fioricet*) [id number] Tab, 1 TAB PO Q6H PRN for PAIN, #30 TAB Prov:RUBIA POLANCO PA-C 03/13/16 Ondansetron (Ondansetron Odt) 4 Mg Tab.rapdis, 4 MG PO Q6H PRN for NAUSEA AND/OR VOMITING, #10 TAB Prov:NOA GIBSON DO 12/17/15 Naproxen* (Naprosyn*) 500 Mg Tablet, 500 MG PO BID PRN for PAIN AND/OR IN FLAMMATION, #10 TAB Prov:NOA GIBSON DO 12/17/15 Acetamin/Butalbital/Caffeine* (Fioricet*) 1 Tab Tab, 1 TAB PO Q4H PRN for PAIN LEVEL 1-5, #15 TAB Prov:RUBIA POLANCO PA-C 11/27/15 Sumatriptan Succinate* (Imitrex*) 50 Mg Tablet, 50 MG PO BID PRN for MIGRAINE HEADACHE, #30 TAB May repeat after 2 hours if needed; MAX 200 mg/24 hours Prov:RUBIA POLANCO PA-C 11/27/15 Hydrocodone Bit-Acetaminophen* ([place]*) 5-325 Mg Tab, 1 TAB PO Q6 PRN for PAIN, #16 TAB Prov:AMANDEEP RIVERA MD 10/19/15 Ondansetron Hcl* (Zofran* ODT) 8 mg -ODT Tab.disper, 8 MG PO Q6 PRN for NAUSEA AND/OR VOMITING, #10 TAB Prov:AMANDEEP RIVERA MD 10/19/15 Hydrocodone Bit-Acetaminophen* ([place]*) 5-325 Mg Tab, 1 TAB PO Q6 PRN for PAIN, #16 TAB Prov:AMANDEEP RIVERA MD 05/30/15 Prochlorperazine* (Prochlorperazine*) 10 Mg Tablet, 10 MG PO Q6 PRN for NAUSEA AND/OR VOMITING, #10 TAB Prov:KALANI ARREAGA. DO 04/24/15 Ibuprofen* (Motrin*) 800 Mg Tab, 800 MG PO Q6H PRN for PAIN AND OR ELEVATED TEMP, #30 TAB Prov:ALEXIS ARREAGAS A. DO 04/24/15 Hydrocodone Bit-Acetaminophen* ([place]*) 7.5-325 Tablet, 2 TAB PO Q4H PRN for PAIN, #30 TAB Prov:ALEXIS ARREAGAS A. DO 04/24/15 Acetamin/Butalbital/Caffeine* (Fioricet*) 1 Tab Tab, 1 TAB PO Q4H PRN for PAIN LEVEL 1-5, #30 TAB Prov:RUBIA POLANCO PA-C 02/12/15 Ondansetron Hcl* (Zofran*) 4 Mg Tablet, 4 MG PO Q8, #20 TAB Prov:TREMAINE GARNICA 01/18/15 Sloqmgnlozcnn-Ldtwfhtall-Xlpoiwqv-Codeine* (Fioricet w/ Codeine*) [id number] Capsule, 1 CAP PO Q6H PRN for PAIN LEVEL 1-5, #20 CAP Prov:TREMAINE GARNICA 01/18/15 Ondansetron Hcl* (Zofran* ODT) 8 mg -ODT Tab.disper, 8 MG PO Q6H PRN for NAUSEA AND OR VOMITING, #20 TAB Prov:JANKI ANDRADE PA-C 12/26/14 Qybnpavqqflyh-Xolpyiwwdr-Fdkwgcfh-Codeine* (Fioricet w/Codeine*) [id number] Cap, 1 CAP PO Q4H PRN for PAIN LEVEL 1-5, #20 CAP Prov:JNAKI ANDRADE PA-C 12/26/14 Amoxicillin-Clavulanate K* (Augmentin*) 875 Mg Tab, 875 MG PO BID for 7 Days, TAB Prov:REVA MA 11/01/14 Acetaminophen-Codeine* (Acetaminophen-Cod #3*) 300-30 Mg Tab, 1 TAB PO Q6 PRN for PAIN, #10 TAB Prov:REVA MANegro 11/01/14 Iccnqtsrmxxel-Bqfudgkaia-Wtnmzbiy-Codeine* (Fioricet w/ Codeine*) [id number] Capsule, 1 CAP PO Q6H PRN for PAIN LEVEL 1-5, #8 CAP Prov:JANKI ANDRADE PA-C 09/22/14 Ondansetron Hcl* (Zofran* ODT) 8 mg -ODT Tab.disper, 8 MG PO Q6 PRN for NAUSEA AND/OR VOMITING, #20 TAB Prov:JANKI ANDRADE PA-C 09/22/14 Allergies Allergies: Coded Allergies: No Known Allergy (Unverified , 07/22/18) PMhx/Soc Medical and Surgical Hx: pt denies Medical Hx History of Surgery: Yes (APPENDECTOMY,TUBAL LIGATION) Anesthesia Reaction: No Hx Neurological Disorder: Yes (MIGRAINES) Hx Respiratory Disorders: No Hx Cardiac Disorders: No Hx Psychiatric Problems: No Hx Miscellaneous Medical Probl: No Hx Alcohol Use: No Hx Substance Use: No Hx Tobacco Use: No FmHx Family History: No diabetes Physical Exam Vitals Vital Signs Date Temp Pulse Resp B/P (MAP) Pulse Ox O2 O2 Flow FiO2 Time Delivery Rate 11/03/18 98.3 98 16 122/72 97 14:57 (89) Physical Exam Const: No acute distress Head: Atraumatic Eyes: Normal Conjunctiva ENT: Normal External Ears, Nose and Mouth. Neck: Full range of motion. No meningismus. Resp: Clear to auscultation bilaterally Cardio: Regular rate and rhythm, no murmurs Abd: Soft, non tender, non distended. Normal bowel sounds Skin: No petechiae or rashes Back: No midline or flank tenderness Ext: No cyanosis, or edema Neur: Awake and alert Psych: Normal Mood and Affect Procedures/MDM Vital signs stable, Physical exam unremarkable, neurovascular exam intact. Differential diagnosis include but not limited to: Classical migraine, sinusitis, visual corrective problems, side effects of medications, dehydration, electrolyte imbalance, endocrine/autoimmune medical condition, stress, anxiety, tension headache. Low suspicion for meningitis, TECHNOLOGY ENGINEER tumor, cerebrovascular event. Physical examination and clinical presentation consistent most likely with migraine headache. During the ED course the patient remained stable, no new complaints. Results and clinical impression discussed with patient who agrees with management. The patient is stable to be treated outpatient and will be discharged home, some side effects of prescribed medications (headache, rash, nausea, vomiting, diarrhea, drowsiness, habituation, bleeding, hypertension, interactions with other medications) were reviewed. Follow up with the primary care provider in the next 48h has been recommended. If symptoms persist, worsen or new symptoms develop, then patient should return to the ED immediately. Instructions explained and given directly by me to the patient with acknowledgment and demonstrated understanding. Disclaimer: Inadvertent spelling and grammatical errors are likely due to EHR/dictation software use and do not reflect on the overall quality of patient care. Also, please note that the electronic time recorded on this note does not necessarily reflect the actual time of the patient encounter. Departure Diagnosis: Primary Impression: Migraine headache Additional Impression: Medication refill Condition: Stable Patient Instructions: Taking Medicine Safely Additional Instructions: Muchas karen por [facility] para kamara servicio. Esperamos que en kamara visita a la rosalind de emergencia kamara problema medico haya sido solucionado y que se sienta mucho mejor. Para estar seguros que kamara mejoria sigue en proceso, le pedimos el favor de hacer nickie tamara de seguimiento medico con kamara doctor primario en los proximos 2-4 tavares. Lleve con usted estos documentos y las medicinas recetadas. Si timothy sintomas empeoran, NO SE ESPERE, por favor regrese a rosalind de emergencia INMEDIATAMENTE. En maldonado que usted no tenga un mdico de atencin primaria: Llame al mdico o clnica comunitaria de referencia que aparece abajo nidia las horas de consultorio para hacer nickie tamara para que le vean. CLINICAS: [facility] [phone] [id number] [phone] [facility] [phone] [facility] [phone] [facility]. [facility] [phone] [address] [facility] [phone] CRISTA AGARWAL MD Nov 03, 2018 15:34
== END 2018-11-03 15:55 | disposition home or self-care (01) ==
LOC: FTE 14:55
DX: G43.909 Migraine, unspecified, not intractable, without status migrainosus (principal); Z76.0 Encounter for issue of repeat prescription
CPT/HCPCS: 99282